=== PATIENT | female | born 1945 | race Caucasian/White ===

== ENCOUNTER 2017-08-11 19:30 | Inpatient (IN) | payer MEDICARE, BC, OTHER ==
[2017-08-11] MEDS ORDERED: morphine 2 MG INJ IV (21:44)
[2017-08-11] MEDS: SOD CHLORIDE 0.9% 1,000 ML IV (22:08)
[2017-08-11 22:22] LABS: ADD MAN DIFF? NO
[2017-08-11 22:25] LABS: BASOPHILS % 0.5 % (0.0-2.0); EOSINOPHILS # 0.1 10^3/ul (0.0-0.5); EOSINOPHILS % 0.8 % (0.0-7.0); HEMATOCRIT 27.4 % (37.0-47.0); HEMOGLOBIN 9.3 g/dl (12.0-16.0); LYMPHOCYTES # 0.7 10^3/ul (0.8-2.9); LYMPHOCYTES % 11.8 % (15.0-51.0); MEAN CORPUSCULAR HGB CONC 33.9 g/dl (32.0-37.0); MEAN CORPUSCULAR VOLUME 79.7 fl (82.0-101.0); MEAN PLATELET VOLUME 8.2 fl (7.4-10.4); MONOCYTE # 0.5 10^3/ul (0.3-0.9); MONOCYTES % 8.3 % (0.0-11.0); NEUTROPHIL # 4.9 10^3/ul (1.6-7.5); PLATELET COUNT 235 10^3/UL (140-415); RED BLOOD COUNT 3.44 10^6/ul (4.20-5.40); RED CELL DISTRIBUTION WIDTH 18.7 % (11.5-14.5)
[2017-08-11 22:25] LABS: WHITE BLOOD COUNT 6.3 10^3/ul (4.8-10.8)
[2017-08-11] MEDS: ONDANSETRON 4 MG INJ IV (22:25)
[2017-08-11 23:06] LABS: ALANINE AMINOTRANSFERASE 19 IU/L (13-69); ALBUMIN/GLOBULIN RATIO 1.25; ALKALINE PHOSPHATASE 76 IU/L (42-121); ANION GAP 24 (8-16); ASPARTATE AMINO TRANSFERASE 18 IU/L (15-46); BLOOD UREA NITROGEN 80 mg/dl (7-20); CALCIUM 8.9 mg/dl (8.4-10.2); CARBON DIOXIDE 11 mmol/L (21-31); CHLORIDE 116 mmol/L (97-110); CREATININE 8.17 mg/dl (0.44-1.00); GLUCOSE 112 mg/dl (70-220); LIPASE 1290 U/L (23-300); POTASSIUM 3.9 mmol/L (3.5-5.1); SODIUM 147 mmol/L (135-144); TOTAL PROTEIN 7.2 g/dl (6.1-8.1)
[2017-08-11 23:13] LABS: ADD UMIC YES; UR ASCORBIC ACID NEGATIVE (NEGATIVE); UR BACTERIA FEW /HPF (NONE SEEN); UR BILIRUBIN (Dip) NEGATIVE (NEGATIVE); UR BLOOD (Dip) 1+ mg/dL (NEGATIVE); UR CLARITY SLIGHTLY CLOUDY (CLEAR); UR COLOR YELLOW (YELLOW); UR GLUCOSE (Dip) NEGATIVE (NEGATIVE); UR KETONES (Dip) NEGATIVE (NEGATIVE); UR LEUKOCYTE ESTERASE (Dip) 2+ Leu/ul (NEGATIVE); UR MUCUS FEW /HPF (NONE SEEN); UR NITRITE (Dip) NEGATIVE (NEGATIVE); UR RBC 3 /HPF (0-5); UR SPECIFIC GRAVITY (Dip) 1.009 (1.003-1.030); UR TOTAL PROTEIN (Dip) 1+ mg/dl (NEGATIVE); UR UROBILINOGEN (Dip) NEGATIVE (NEGATIVE); UR WBC 16 /HPF (0-5)
[2017-08-11 23:17] LABS: TROPONIN-I 0.076 ng/ml (0.00-0.12)
[2017-08-12] MEDS ORDERED: METOPROLOL 25 MG TAB PO
[2017-08-12] MEDS: ONDANSETRON 4 MG INJ IV ×4 (01:14→22:37)
[2017-08-12] MEDS: AMLODIPINE 5 MG TAB PO (01:15)
[2017-08-12 01:50] LABS: IRON 92 ug/dl (35-150)
[2017-08-12 01:53] LABS: MAGNESIUM 1.9 mg/dl (1.7-2.5)
[2017-08-12 01:53] LABS: LACTIC ACID 0.8 mmol/L (0.5-2.0)
[2017-08-12 01:59] LABS: % IRON SATURATION 44 % SAT (22-52); TOTAL IRON BINDING CAPACITY 208 ug/dl (241-421)
[2017-08-12] MEDS ORDERED: VITAMIN A & D 5 GM OINT PACKET TOP (05:18)
[2017-08-12] MEDS: PANTOPRAZOLE 40 MG INJ IV (05:21)
[2017-08-12 06:24] LABS: ADD MAN DIFF? NO
[2017-08-12 06:27] LABS: BASOPHILS % 0.4 % (0.0-2.0); EOSINOPHILS % 0.8 % (0.0-7.0); HEMATOCRIT 23.6 % (37.0-47.0); HEMOGLOBIN 7.9 g/dl (12.0-16.0); LYMPHOCYTES # 0.8 10^3/ul (0.8-2.9); LYMPHOCYTES % 15.5 % (15.0-51.0); MEAN CORPUSCULAR HEMOGLOBIN 27.1 pg (29.0-33.0); MEAN CORPUSCULAR HGB CONC 33.5 g/dl (32.0-37.0); MEAN CORPUSCULAR VOLUME 80.8 fl (82.0-101.0); MEAN PLATELET VOLUME 8.3 fl (7.4-10.4); MONOCYTE # 0.5 10^3/ul (0.3-0.9); MONOCYTES % 10.3 % (0.0-11.0); NEUTROPHIL # 3.6 10^3/ul (1.6-7.5); PLATELET COUNT 207 10^3/UL (140-415); RED BLOOD COUNT 2.92 10^6/ul (4.20-5.40); RED CELL DISTRIBUTION WIDTH 18.7 % (11.5-14.5)
[2017-08-12 07:01] LABS: ALANINE AMINOTRANSFERASE 13 IU/L (13-69); ALBUMIN 3.4 g/dl (3.3-4.9); ALBUMIN/GLOBULIN RATIO 1.13; ALKALINE PHOSPHATASE 64 IU/L (42-121); ANION GAP 24 (8-16); ASPARTATE AMINO TRANSFERASE 14 IU/L (15-46); BLOOD UREA NITROGEN 77 mg/dl (7-20); CALCIUM 8.2 mg/dl (8.4-10.2); CHLORIDE 121 mmol/L (97-110); CREATININE 7.87 mg/dl (0.44-1.00); GLUCOSE 85 mg/dl (70-220); LIPASE 617 U/L (23-300); POTASSIUM 3.9 mmol/L (3.5-5.1); SODIUM 150 mmol/L (135-144); TOTAL PROTEIN 6.4 g/dl (6.1-8.1)
[2017-08-12 07:09] LABS: CARBON DIOXIDE 9 mmol/L (21-31)
[2017-08-12 07:20] LABS: CARCINOEMBRYONIC ANTIGEN 0.8 ng/ml (0.0-5.0)
[2017-08-12] MEDS: LEVOFLOXACIN 500MG/D5W (PMX) 100 ML IVPB (10:27)
[2017-08-12] MEDS: CLONIDINE 0.1 MG/24 HR PATCH TRANSDERM (10:28)
[2017-08-12] MEDS: NA BICARBONATE 8.4% 50 ML SYG IVPB ×2 (10:36→11:45)
[2017-08-12] MEDS ORDERED: NA BICARBONATE 8.4% 50 ML SYG IV (11:00)
[2017-08-12 11:09] LABS: ADD MAN DIFF? NO
[2017-08-12 11:30] LABS: AADO2 Arterial 32.7 mmHg (7.0-24.0); Allen Test ACCEPTAB; Arterial Base Excess -17.2 mmol/L (-3.0-3); Arterial Blood Gas Oxygen Sat 95.1 mmHG (95.0-100.0); Arterial COHb 0.3 % (0.0-3.0); Arterial Fraction of Oxyhgb 94.3 % (93.0-99.0); Arterial HCO3 9.7 mmol/L (22.0-26.0); Arterial MetHb 0.5 % (0.0-1.5); Arterial Total Hemglobin 8.8 g/dl (12.0-18.0); Arterial pCO2 26.8 mmhg (35-45); MODE ROOM AIR; Site Right Radial
[2017-08-12 11:48] LABS: INR 1.25; PROTIME 15.9 Sec (11.9-14.9); PT RATIO 1.2
[2017-08-12 12:22] LABS: WHITE BLOOD COUNT 5.3 10^3/ul (4.8-10.8)
[2017-08-12 12:22] LABS: BASOPHILS % 0.6 % (0.0-2.0); EOSINOPHILS # 0.1 10^3/ul (0.0-0.5); EOSINOPHILS % 1.3 % (0.0-7.0); HEMATOCRIT 23.2 % (37.0-47.0); HEMOGLOBIN 7.9 g/dl (12.0-16.0); LYMPHOCYTES # 0.7 10^3/ul (0.8-2.9); LYMPHOCYTES % 12.5 % (15.0-51.0); MEAN CORPUSCULAR HEMOGLOBIN 27.4 pg (29.0-33.0); MEAN CORPUSCULAR HGB CONC 34.1 g/dl (32.0-37.0); MEAN CORPUSCULAR VOLUME 80.6 fl (82.0-101.0); MEAN PLATELET VOLUME 7.8 fl (7.4-10.4); MONOCYTE # 0.5 10^3/ul (0.3-0.9); MONOCYTES % 9.1 % (0.0-11.0); NEUTROPHILS % 75.4 % (39.0-77.0); PLATELET COUNT 180 10^3/UL (140-415); RED BLOOD COUNT 2.88 10^6/ul (4.20-5.40); RED CELL DISTRIBUTION WIDTH 18.7 % (11.5-14.5)
[2017-08-12] MEDS: SODIUM BICARBONATE (IV ADD) 100 MEQ in DEXTROSE 5% 900 ML IV ×2 (12:22→15:33)
[2017-08-12 12:23] LABS: RETICULOCYTE COUNT % 2.1 % (0.5-1.5)
[2017-08-12] MEDS: NA BICARBONATE 8.4% 50 ML SYG IV (12:24)
[2017-08-12 13:01] LABS: FOLATE 12.9 ng/ml (2.8-20.0)
[2017-08-12 14:16] LABS: CARCINOEMBRYONIC ANTIGEN 0.7 ng/ml (0.0-5.0)
[2017-08-12 14:20] LABS: CANCER ANTIGEN 19-9 19.4 U/ml (0.0-37.0)
[2017-08-12 15:30] LABS: SODIUM,URINE RANDOM 101 mmol/L (30-90)
[2017-08-12 15:34] LABS: PROTEIN/CREAT RATIO 2.64 RATIO
[2017-08-12 16:46] LABS: ANION GAP 21 (8-16); BLOOD UREA NITROGEN 78 mg/dl (7-20); CALCIUM 8.2 mg/dl (8.4-10.2); CARBON DIOXIDE 18 mmol/L (21-31); CHLORIDE 114 mmol/L (97-110); CREATININE 7.77 mg/dl (0.44-1.00); GLUCOSE 165 mg/dl (70-220); POTASSIUM 3.4 mmol/L (3.5-5.1); SODIUM 150 mmol/L (135-144)
[2017-08-12 16:47] LABS: LACTATE DEHYDROGENASE 575 IU/L (313-618)
[2017-08-12] MEDS: POTASSIUM CHLORIDE (SR) 10 MEQ TAB PO ×2 (17:39→23:46)
[2017-08-12] MEDS: EPOETIN 10000 UNITS/1 ML INJ (ESRD) SC (18:10)
[2017-08-12] MEDS: SODIUM BICARBONATE IV (19:40)
[2017-08-12] MEDS: DEXTROSE 5% IV (19:40)
[2017-08-13] MEDS: ONDANSETRON 4 MG INJ IV ×3 (04:18→14:42)
[2017-08-13] MEDS: PANTOPRAZOLE 40 MG INJ IV (05:02)
[2017-08-13] MEDS: SALINE 0.65% 45 ML NAS SPRAY NASAL (05:05)
[2017-08-13] MEDS: morphine 2 MG INJ IV (06:31)
[2017-08-13 07:35] LABS: INR 1.16; PT RATIO 1.2
[2017-08-13 07:36] LABS: PARTIAL THROMBOPLASTIN TIME 27.8 Sec (25.0-35.0)
[2017-08-13 07:48] LABS: ANION GAP 21 (8-16); BLOOD UREA NITROGEN 73 mg/dl (7-20); CARBON DIOXIDE 21 mmol/L (21-31); CHLORIDE 112 mmol/L (97-110); CREATININE 7.21 mg/dl (0.44-1.00); GLUCOSE 114 mg/dl (70-220); MAGNESIUM 1.6 mg/dl (1.7-2.5); PHOSPHORUS 5.6 mg/dl (2.5-4.9); POTASSIUM 3.9 mmol/L (3.5-5.1); SODIUM 150 mmol/L (135-144)
[2017-08-13] MEDS: DEXTROSE 5% IV ×4 (08:18→21:10)
[2017-08-13] MEDS: SODIUM BICARBONATE IV ×4 (08:18→21:10)
[2017-08-13] MEDS: clonAZEPAM 0.5 MG TAB PO (08:50)
[2017-08-13] MEDS: LEVOFLOXACIN 500MG/D5W (PMX) 100 ML IVPB (08:50)
[2017-08-13] MEDS ORDERED: LIDOCAINE 2% (SDV) 5 ML INJ (12:16)
[2017-08-13] MEDS ORDERED: PROPOFOL 20 ML (12:16)
[2017-08-13] MEDS: DEXTROSE 5%-0.225% NACL 1,000 ML IV ×2 (13:00→21:55)
[2017-08-13] MEDS: MAGNESIUM SULFATE 2 GM/50 ML 50 ML IVPB (14:43)
[2017-08-13] MEDS: METOCLOPRAMIDE 5 MG TAB PO ×2 (14:43→21:56)
[2017-08-13] MEDS: POTASSIUM CHLORIDE (SR) 10 MEQ TAB PO (14:43)
[2017-08-13 15:32] LABS: ADD MAN DIFF? NO
[2017-08-13 15:35] LABS: BASOPHILS % 0.3 % (0.0-2.0); EOSINOPHILS # 0.1 10^3/ul (0.0-0.5); EOSINOPHILS % 1.7 % (0.0-7.0); HEMATOCRIT 23.9 % (37.0-47.0); HEMOGLOBIN 8.2 g/dl (12.0-16.0); LYMPHOCYTES # 0.8 10^3/ul (0.8-2.9); LYMPHOCYTES % 10.7 % (15.0-51.0); MEAN CORPUSCULAR HEMOGLOBIN 27.6 pg (29.0-33.0); MEAN CORPUSCULAR HGB CONC 34.3 g/dl (32.0-37.0); MEAN CORPUSCULAR VOLUME 80.5 fl (82.0-101.0); MEAN PLATELET VOLUME 8.4 fl (7.4-10.4); MONOCYTE # 0.6 10^3/ul (0.3-0.9); MONOCYTES % 8.3 % (0.0-11.0); NEUTROPHIL # 5.5 10^3/ul (1.6-7.5); NEUTROPHILS % 78.6 % (39.0-77.0); PLATELET COUNT 228 10^3/UL (140-415); RED BLOOD COUNT 2.97 10^6/ul (4.20-5.40); RED CELL DISTRIBUTION WIDTH 18.6 % (11.5-14.5)
[2017-08-13 16:05] LABS: ALBUMIN 3.8 g/dL (3.8-4.8); ALPHA-1-GLOBULINS 0.6 g/dL (0.2-0.3); ALPHA-2-GLOBULINS 0.9 g/dL (0.5-0.9); BETA 2 GLOBULINS 0.3 g/dL (0.2-0.5); BETA GLOBULINS 0.4 g/dL (0.4-0.6); GAMMA GLOBULINS 1.1 g/dL (0.8-1.7)
[2017-08-13] MEDS: SUCRALFATE 1 GM TAB PO (18:43)
[2017-08-14] MEDS: CLONIDINE 0.1 MG/24 HR PATCH TRANSDERM (01:35)
[2017-08-14] MEDS: DEXTROSE 5% IV (03:50)
[2017-08-14] MEDS: SODIUM BICARBONATE IV (03:50)
[2017-08-14] MEDS: ONDANSETRON 4 MG INJ IV ×3 (04:14→17:45)
[2017-08-14] MEDS: PANTOPRAZOLE 40 MG INJ IV ×2 (05:17→17:44)
[2017-08-14] MEDS: DEXTROSE 5%-0.225% NACL 1,000 ML IV (05:17)
[2017-08-14 06:14] LABS: ADD MAN DIFF? NO
[2017-08-14 06:21] LABS: WHITE BLOOD COUNT 8.7 10^3/ul (4.8-10.8)
[2017-08-14 06:21] LABS: BASOPHILS % 0.3 % (0.0-2.0); EOSINOPHILS # 0.1 10^3/ul (0.0-0.5); EOSINOPHILS % 0.9 % (0.0-7.0); HEMOGLOBIN 8.2 g/dl (12.0-16.0); LYMPHOCYTES # 0.6 10^3/ul (0.8-2.9); LYMPHOCYTES % 7.2 % (15.0-51.0); MEAN CORPUSCULAR HEMOGLOBIN 27.3 pg (29.0-33.0); MEAN CORPUSCULAR HGB CONC 34.2 g/dl (32.0-37.0); MEAN PLATELET VOLUME 8.2 fl (7.4-10.4); MONOCYTE # 0.6 10^3/ul (0.3-0.9); MONOCYTES % 6.7 % (0.0-11.0); NEUTROPHIL # 7.3 10^3/ul (1.6-7.5); NEUTROPHILS % 84.6 % (39.0-77.0); PLATELET COUNT 193 10^3/UL (140-415); RED CELL DISTRIBUTION WIDTH 18.2 % (11.5-14.5)
[2017-08-14 06:50] LABS: ANION GAP 18 (8-16); BLOOD UREA NITROGEN 66 mg/dl (7-20); CALCIUM 7.6 mg/dl (8.4-10.2); CARBON DIOXIDE 23 mmol/L (21-31); CHLORIDE 103 mmol/L (97-110); CREATININE 6.41 mg/dl (0.44-1.00); GLUCOSE 191 mg/dl (70-220); MAGNESIUM 2.2 mg/dl (1.7-2.5); PHOSPHORUS 4.7 mg/dl (2.5-4.9); SODIUM 140 mmol/L (135-144)
[2017-08-14] MEDS: SUCRALFATE 1 GM TAB PO ×2 (08:39→17:28)
[2017-08-14] MEDS: METOCLOPRAMIDE 5 MG TAB PO ×2 (08:40→13:00)
[2017-08-14] MEDS: SOD CHLORIDE 0.45% 1,000 ML IV ×2 (08:40→18:36)
[2017-08-14] MEDS: morphine 2 MG INJ IV (15:14)
[2017-08-14] MEDS: EPOETIN 10000 UNITS/1 ML INJ (ESRD) SC (16:54)
[2017-08-14 19:45] LABS: OCCULT BLOOD STOOL NEGATIVE (NEGATIVE)
[2017-08-14] MEDS: METOCLOPRAMIDE 10 MG INJ IV (20:25)
[2017-08-15] MEDS: SOD CHLORIDE 0.45% 1,000 ML IV ×2 (06:28→16:18)
[2017-08-15] MEDS: PANTOPRAZOLE 40 MG INJ IV ×2 (06:28→17:18)
[2017-08-15 06:49] LABS: ADD MAN DIFF? NO
[2017-08-15 06:53] LABS: WHITE BLOOD COUNT 6.4 10^3/ul (4.8-10.8)
[2017-08-15 06:53] LABS: BASOPHILS % 0.3 % (0.0-2.0); EOSINOPHILS # 0.1 10^3/ul (0.0-0.5); EOSINOPHILS % 1.3 % (0.0-7.0); HEMATOCRIT 22.4 % (37.0-47.0); HEMOGLOBIN 7.6 g/dl (12.0-16.0); LYMPHOCYTES # 0.6 10^3/ul (0.8-2.9); LYMPHOCYTES % 9.8 % (15.0-51.0); MEAN CORPUSCULAR HEMOGLOBIN 27.1 pg (29.0-33.0); MEAN CORPUSCULAR HGB CONC 33.9 g/dl (32.0-37.0); MEAN PLATELET VOLUME 8.6 fl (7.4-10.4); MONOCYTE # 0.7 10^3/ul (0.3-0.9); MONOCYTES % 10.4 % (0.0-11.0); NEUTROPHILS % 77.9 % (39.0-77.0); PLATELET COUNT 157 10^3/UL (140-415); RED CELL DISTRIBUTION WIDTH 17.8 % (11.5-14.5)
[2017-08-15 06:55] LABS: ANION GAP 17 (8-16); BLOOD UREA NITROGEN 54 mg/dl (7-20); CALCIUM 7.6 mg/dl (8.4-10.2); CARBON DIOXIDE 22 mmol/L (21-31); CHLORIDE 105 mmol/L (97-110); CREATININE 6.46 mg/dl (0.44-1.00); GLUCOSE 104 mg/dl (70-220); MAGNESIUM 1.8 mg/dl (1.7-2.5); PHOSPHORUS 4.4 mg/dl (2.5-4.9); POTASSIUM 3.7 mmol/L (3.5-5.1); SODIUM 140 mmol/L (135-144)
[2017-08-15] MEDS: SUCRALFATE 1 GM TAB PO ×2 (08:35→17:18)
[2017-08-15] MEDS: METOCLOPRAMIDE 10 MG INJ IV ×3 (08:36→20:31)
[2017-08-15 12:16] LABS: ALBUMIN 3.2 g/dL (3.8-4.8); ALPHA-1-GLOBULINS 0.5 g/dL (0.2-0.3); ALPHA-2-GLOBULINS 0.8 g/dL (0.5-0.9); BETA 2 GLOBULINS 0.3 g/dL (0.2-0.5); BETA GLOBULINS 0.3 g/dL (0.4-0.6); GAMMA GLOBULINS 0.9 g/dL (0.8-1.7)
[2017-08-16] MEDS: SOD CHLORIDE 0.45% 1,000 ML IV ×5 (02:39→20:30)
[2017-08-16] MEDS: PANTOPRAZOLE 40 MG INJ IV ×2 (05:19→17:59)
[2017-08-16 06:32] LABS: ADD MAN DIFF? NO
[2017-08-16 06:43] LABS: ABNORMAL IP MESSAGE 1; BASOPHILS % 0.3 % (0.0-2.0); EOSINOPHILS # 0.1 10^3/ul (0.0-0.5); EOSINOPHILS % 1.4 % (0.0-7.0); HEMATOCRIT 21.7 % (37.0-47.0); HEMOGLOBIN 7.4 g/dl (12.0-16.0); LYMPHOCYTES # 0.6 10^3/ul (0.8-2.9); LYMPHOCYTES % 8.7 % (15.0-51.0); MEAN CORPUSCULAR HEMOGLOBIN 27.5 pg (29.0-33.0); MEAN CORPUSCULAR HGB CONC 34.1 g/dl (32.0-37.0); MEAN CORPUSCULAR VOLUME 80.7 fl (82.0-101.0); MEAN PLATELET VOLUME 8.4 fl (7.4-10.4); MONOCYTE # 0.6 10^3/ul (0.3-0.9); MONOCYTES % 9.2 % (0.0-11.0); NEUTROPHIL # 5.3 10^3/ul (1.6-7.5); NEUTROPHILS % 79.6 % (39.0-77.0); PLATELET COUNT 139 10^3/UL (140-415); RED BLOOD COUNT 2.69 10^6/ul (4.20-5.40); RED CELL DISTRIBUTION WIDTH 17.7 % (11.5-14.5)
[2017-08-16 06:43] LABS: WHITE BLOOD COUNT 6.6 10^3/ul (4.8-10.8)
[2017-08-16 07:02] LABS: ANION GAP 17 (8-16); BLOOD UREA NITROGEN 49 mg/dl (7-20); CALCIUM 7.7 mg/dl (8.4-10.2); CARBON DIOXIDE 20 mmol/L (21-31); CHLORIDE 105 mmol/L (97-110); CREATININE 6.19 mg/dl (0.44-1.00); GLUCOSE 96 mg/dl (70-220); MAGNESIUM 1.6 mg/dl (1.7-2.5); POTASSIUM 3.5 mmol/L (3.5-5.1); SODIUM 138 mmol/L (135-144)
[2017-08-16 07:21] LABS: POSITIVE DIFF @See below
[2017-08-16] MEDS: METOCLOPRAMIDE 10 MG INJ IV ×3 (09:43→22:31)
[2017-08-16] MEDS: SUCRALFATE 1 GM TAB PO ×2 (09:43→17:59)
[2017-08-16] MEDS: MAGNESIUM SULFATE 3 GM in DEXTROSE 5% 100 ML IVPB (12:13)
[2017-08-16] MEDS: POTASSIUM CHLORIDE (SR) 10 MEQ TAB PO (12:14)
[2017-08-17 02:57] LABS: IMMEDIATE SPIN CROSSMATCH 1 2
[2017-08-17] MEDS: ACETAMINOPHEN 650 MG SUPP PR (03:10)
[2017-08-17] MEDS: PANTOPRAZOLE 40 MG INJ IV ×2 (06:03→18:35)
[2017-08-17] MEDS: SOD CHLORIDE 0.45% 1,000 ML IV (06:26)
[2017-08-17] MEDS: SUCRALFATE 1 GM TAB PO ×2 (08:23→18:35)
[2017-08-17] MEDS: METOCLOPRAMIDE 10 MG INJ IV ×3 (08:23→21:24)
[2017-08-17 11:45] LABS: ADD MAN DIFF? NO
[2017-08-17 11:48] LABS: WHITE BLOOD COUNT 10.7 10^3/ul (4.8-10.8)
[2017-08-17 11:48] LABS: BASOPHILS % 0.4 % (0.0-2.0); EOSINOPHILS # 0.1 10^3/ul (0.0-0.5); EOSINOPHILS % 0.6 % (0.0-7.0); HEMATOCRIT 30.7 % (37.0-47.0); HEMOGLOBIN 10.7 g/dl (12.0-16.0); LYMPHOCYTES # 0.8 10^3/ul (0.8-2.9); MEAN CORPUSCULAR HEMOGLOBIN 29.1 pg (29.0-33.0); MEAN CORPUSCULAR HGB CONC 34.9 g/dl (32.0-37.0); MEAN CORPUSCULAR VOLUME 83.4 fl (82.0-101.0); MEAN PLATELET VOLUME 8.2 fl (7.4-10.4); MONOCYTES % 8.9 % (0.0-11.0); NEUTROPHIL # 8.8 10^3/ul (1.6-7.5); NEUTROPHILS % 82.1 % (39.0-77.0); PLATELET COUNT 165 10^3/UL (140-415); RED BLOOD COUNT 3.68 10^6/ul (4.20-5.40); RED CELL DISTRIBUTION WIDTH 17.3 % (11.5-14.5)
[2017-08-17 12:41] LABS: ANION GAP 18 (8-16); BLOOD UREA NITROGEN 43 mg/dl (7-20); CALCIUM 8.1 mg/dl (8.4-10.2); CARBON DIOXIDE 16 mmol/L (21-31); CHLORIDE 106 mmol/L (97-110); CREATININE 5.65 mg/dl (0.44-1.00); GLUCOSE 123 mg/dl (70-220); MAGNESIUM 2.2 mg/dl (1.7-2.5); POTASSIUM 3.8 mmol/L (3.5-5.1); SODIUM 136 mmol/L (135-144)
[2017-08-17 14:12] LABS: CREATININE, RANDOM URINE 44 mg/dL (20-320); PROTEIN/CREATININE RATIO 2682 mg/g creat (21-161)
[2017-08-17] MEDS: EPOETIN 10000 UNITS/1 ML INJ (ESRD) SC (18:36)
[2017-08-18] MEDS: PANTOPRAZOLE 40 MG INJ IV ×2 (05:34→18:07)
[2017-08-18 06:05] LABS: ADD MAN DIFF? NO
[2017-08-18 06:09] LABS: BASOPHILS % 0.5 % (0.0-2.0); EOSINOPHILS # 0.1 10^3/ul (0.0-0.5); EOSINOPHILS % 1.9 % (0.0-7.0); HEMATOCRIT 28.1 % (37.0-47.0); HEMOGLOBIN 9.6 g/dl (12.0-16.0); LYMPHOCYTES # 0.9 10^3/ul (0.8-2.9); LYMPHOCYTES % 12.6 % (15.0-51.0); MEAN CORPUSCULAR HEMOGLOBIN 28.2 pg (29.0-33.0); MEAN CORPUSCULAR HGB CONC 34.2 g/dl (32.0-37.0); MEAN CORPUSCULAR VOLUME 82.4 fl (82.0-101.0); MEAN PLATELET VOLUME 8.3 fl (7.4-10.4); MONOCYTES % 13.5 % (0.0-11.0); NEUTROPHIL # 5.2 10^3/ul (1.6-7.5); NEUTROPHILS % 70.3 % (39.0-77.0); PLATELET COUNT 159 10^3/UL (140-415); RED BLOOD COUNT 3.41 10^6/ul (4.20-5.40); RED CELL DISTRIBUTION WIDTH 17.9 % (11.5-14.5)
[2017-08-18 06:09] LABS: WHITE BLOOD COUNT 7.4 10^3/ul (4.8-10.8)
[2017-08-18 06:46] LABS: ANION GAP 13 (8-16); BLOOD UREA NITROGEN 46 mg/dl (7-20); CALCIUM 8.4 mg/dl (8.4-10.2); CARBON DIOXIDE 18 mmol/L (21-31); CHLORIDE 113 mmol/L (97-110); GLUCOSE 95 mg/dl (70-220); MAGNESIUM 2.3 mg/dl (1.7-2.5); PHOSPHORUS 3.7 mg/dl (2.5-4.9); POTASSIUM 3.9 mmol/L (3.5-5.1); SODIUM 140 mmol/L (135-144)
[2017-08-18] MEDS: SUCRALFATE 1 GM TAB PO ×2 (08:05→08:48)
[2017-08-18] MEDS: POTASSIUM CHLORIDE (SR) 10 MEQ TAB PO (08:37)
[2017-08-18] MEDS: METOCLOPRAMIDE 10 MG INJ IV ×3 (08:46→20:39)
[2017-08-18] MEDS: FUROSEMIDE 40 MG INJ IV (08:47)
[2017-08-18] MEDS: SOD CHLORIDE 0.9% 500 ML (11:00)
[2017-08-18] MEDS: LIDOCAINE 1% (MDV) 10 ML INJ (11:25)
[2017-08-18] MEDS: morphine 2 MG INJ IV ×2 (19:18→22:11)
[2017-08-18] MEDS: ONDANSETRON 4 MG INJ IV (19:29)
[2017-08-19] MEDS: PANTOPRAZOLE 40 MG INJ IV ×2 (06:06→17:58)
[2017-08-19] MEDS: SUCRALFATE 1 GM TAB PO ×2 (08:37→17:58)
[2017-08-19] MEDS: METOCLOPRAMIDE 10 MG INJ IV ×3 (08:38→21:30)
[2017-08-19] MEDS: AMLODIPINE 5 MG TAB PO (10:57)
[2017-08-19] MEDS: CLONIDINE 0.1 MG/24 HR PATCH TRANSDERM (10:57)
[2017-08-19 11:33] LABS: ADD MAN DIFF? NO
[2017-08-19 11:45] LABS: BASOPHILS % 0.4 % (0.0-2.0); EOSINOPHILS # 0.1 10^3/ul (0.0-0.5); EOSINOPHILS % 0.8 % (0.0-7.0); HEMATOCRIT 29.2 % (37.0-47.0); LYMPHOCYTES # 0.7 10^3/ul (0.8-2.9); LYMPHOCYTES % 8.5 % (15.0-51.0); MEAN CORPUSCULAR HEMOGLOBIN 28.7 pg (29.0-33.0); MEAN CORPUSCULAR HGB CONC 34.2 g/dl (32.0-37.0); MEAN CORPUSCULAR VOLUME 83.9 fl (82.0-101.0); MONOCYTE # 1.3 10^3/ul (0.3-0.9); MONOCYTES % 16.1 % (0.0-11.0); NEUTROPHIL # 5.7 10^3/ul (1.6-7.5); NEUTROPHILS % 73.2 % (39.0-77.0); PLATELET COUNT 160 10^3/UL (140-415); RED BLOOD COUNT 3.48 10^6/ul (4.20-5.40); RED CELL DISTRIBUTION WIDTH 18.5 % (11.5-14.5)
[2017-08-19 11:45] LABS: WHITE BLOOD COUNT 7.8 10^3/ul (4.8-10.8)
[2017-08-19 12:07] LABS: URIC ACID 8.8 mg/dl (3.1-7.9)
[2017-08-19 12:10] LABS: ANION GAP 18 (8-16); BLOOD UREA NITROGEN 52 mg/dl (7-20); CALCIUM 8.9 mg/dl (8.4-10.2); CARBON DIOXIDE 19 mmol/L (21-31); CHLORIDE 104 mmol/L (97-110); CREATININE 6.66 mg/dl (0.44-1.00); GLUCOSE 164 mg/dl (70-220); PHOSPHORUS 3.5 mg/dl (2.5-4.9); POTASSIUM 3.9 mmol/L (3.5-5.1); SODIUM 137 mmol/L (135-144)
[2017-08-19] MEDS: morphine 2 MG INJ IV (12:49)
[2017-08-19 12:55] LABS: IMMUNOGLOBULIN A 142 mg/dl (70-400); IMMUNOGLOBULIN G 862 mg/dl (700-1600); IMMUNOGLOBULIN M 65 mg/dl (40-230)
[2017-08-19 16:18] LABS: CANCER ANTIGEN 125 8.9 U/ml (0.0-35.0)
[2017-08-19] MEDS: EPOETIN ALFA 1,000 UNITS/0.1 ML VIAL SC (17:58)
[2017-08-20] MEDS: morphine 2 MG INJ IV (00:36)
[2017-08-20] MEDS: PANTOPRAZOLE 40 MG INJ IV ×2 (05:51→18:40)
[2017-08-20 06:28] LABS: ADD MAN DIFF? NO
[2017-08-20 06:44] LABS: BASOPHILS % 0.5 % (0.0-2.0); EOSINOPHILS # 0.1 10^3/ul (0.0-0.5); EOSINOPHILS % 1.2 % (0.0-7.0); HEMATOCRIT 28.3 % (37.0-47.0); HEMOGLOBIN 9.4 g/dl (12.0-16.0); LYMPHOCYTES % 13.6 % (15.0-51.0); MEAN CORPUSCULAR HEMOGLOBIN 27.8 pg (29.0-33.0); MEAN CORPUSCULAR HGB CONC 33.2 g/dl (32.0-37.0); MEAN CORPUSCULAR VOLUME 83.7 fl (82.0-101.0); MEAN PLATELET VOLUME 8.3 fl (7.4-10.4); MONOCYTE # 1.3 10^3/ul (0.3-0.9); MONOCYTES % 16.5 % (0.0-11.0); NEUTROPHILS % 66.7 % (39.0-77.0); PLATELET COUNT 159 10^3/UL (140-415); RED BLOOD COUNT 3.38 10^6/ul (4.20-5.40); RED CELL DISTRIBUTION WIDTH 18.6 % (11.5-14.5)
[2017-08-20 06:44] LABS: WHITE BLOOD COUNT 7.6 10^3/ul (4.8-10.8)
[2017-08-20 06:55] LABS: INR 1.17; PROTIME 15.1 Sec (11.9-14.9); PT RATIO 1.2
[2017-08-20 06:56] LABS: PARTIAL THROMBOPLASTIN TIME 34.1 Sec (25.0-35.0)
[2017-08-20 07:19] LABS: COLLAGEN/EPI 84 Secs. (51-198)
[2017-08-20 07:19] LABS: LIPASE 258 U/L (23-300)
[2017-08-20 07:21] LABS: ANION GAP 17 (8-16); BLOOD UREA NITROGEN 55 mg/dl (7-20); CALCIUM 8.8 mg/dl (8.4-10.2); CARBON DIOXIDE 19 mmol/L (21-31); CHLORIDE 103 mmol/L (97-110); CREATININE 6.78 mg/dl (0.44-1.00); GLUCOSE 122 mg/dl (70-220); MAGNESIUM 1.9 mg/dl (1.7-2.5); PHOSPHORUS 3.8 mg/dl (2.5-4.9); POTASSIUM 4.2 mmol/L (3.5-5.1); SODIUM 135 mmol/L (135-144)
[2017-08-20 07:47] LABS: ERYTHROCYTE SEDIMENTATION RATE 55 mm/Hr (0-30)
[2017-08-20] MEDS: SUCRALFATE 1 GM TAB PO ×2 (08:05→17:49)
[2017-08-20] MEDS: AMLODIPINE 5 MG TAB PO (09:00)
[2017-08-20] MEDS: METOCLOPRAMIDE 10 MG INJ IV ×3 (09:56→20:37)
[2017-08-20] MEDS: DEXTROSE 5%-0.45% NACL 1,000 ML IV (09:58)
[2017-08-20 12:36] LABS: COMPLEMENT C3 82 mg/dl (88-165)
[2017-08-20 12:37] LABS: COMPLEMENT C4 27 mg/dl (14-44)
[2017-08-20] MEDS: PROPOFOL 20 ML (12:59)
[2017-08-20] MEDS: FENTAnyl 50 MCG/ML VIAL (13:00)
[2017-08-20] MEDS: LIDOCAINE 1% (MDV) 10 ML INJ (13:03)
[2017-08-20 19:46] LABS: ADD MAN DIFF? NO
[2017-08-20 19:47] LABS: WHITE BLOOD COUNT 5.7 10^3/ul (4.8-10.8)
[2017-08-20 19:47] LABS: BASOPHILS % 0.5 % (0.0-2.0); EOSINOPHILS # 0.1 10^3/ul (0.0-0.5); EOSINOPHILS % 1.8 % (0.0-7.0); HEMATOCRIT 28.7 % (37.0-47.0); HEMOGLOBIN 9.4 g/dl (12.0-16.0); LYMPHOCYTES # 0.9 10^3/ul (0.8-2.9); LYMPHOCYTES % 16.2 % (15.0-51.0); MEAN CORPUSCULAR HEMOGLOBIN 28.1 pg (29.0-33.0); MEAN CORPUSCULAR HGB CONC 32.8 g/dl (32.0-37.0); MEAN CORPUSCULAR VOLUME 85.9 fl (82.0-101.0); MEAN PLATELET VOLUME 8.1 fl (7.4-10.4); MONOCYTE # 0.7 10^3/ul (0.3-0.9); MONOCYTES % 13.1 % (0.0-11.0); NEUTROPHIL # 3.8 10^3/ul (1.6-7.5); PLATELET COUNT 153 10^3/UL (140-415); RED BLOOD COUNT 3.34 10^6/ul (4.20-5.40); RED CELL DISTRIBUTION WIDTH 18.5 % (11.5-14.5)
[2017-08-21] MEDS: DEXTROSE 5%-0.45% NACL 1,000 ML IV ×2 (01:10→06:33)
[2017-08-21] MEDS: morphine 2 MG INJ IV (04:26)
[2017-08-21] MEDS: PANTOPRAZOLE 40 MG INJ IV ×2 (05:26→17:22)
[2017-08-21] MEDS: SUCRALFATE 1 GM TAB PO ×2 (08:05→17:23)
[2017-08-21] MEDS: METOCLOPRAMIDE 10 MG INJ IV ×3 (08:38→20:24)
[2017-08-21] MEDS: AMLODIPINE 5 MG TAB PO (08:42)
[2017-08-21] MEDS: FUROSEMIDE 40 MG INJ IV (09:14)
[2017-08-21] MEDS ORDERED: LORAZEPAM 2 MG INJ IV (11:30)
[2017-08-21] MEDS: MIDAZOLAM 1 MG/ML 2 ML INJ (11:58)
[2017-08-21] MEDS: PROPOFOL 20 ML (11:59)
[2017-08-21] MEDS: FENTAnyl 50 MCG/ML VIAL (11:59)
[2017-08-21] MEDS: LIDOCAINE 2% (SDV) 5 ML INJ (11:59)
[2017-08-21 13:26] LABS: ANCA SCREEN NEGATIVE (NEGATIVE)
[2017-08-21 13:32] LABS: ADD MAN DIFF? NO
[2017-08-21 13:38] LABS: WHITE BLOOD COUNT 6.8 10^3/ul (4.8-10.8)
[2017-08-21 13:38] LABS: BASOPHILS % 0.4 % (0.0-2.0); EOSINOPHILS # 0.1 10^3/ul (0.0-0.5); EOSINOPHILS % 1.5 % (0.0-7.0); HEMATOCRIT 26.7 % (37.0-47.0); LYMPHOCYTES # 1.2 10^3/ul (0.8-2.9); MEAN CORPUSCULAR HGB CONC 33.7 g/dl (32.0-37.0); MEAN CORPUSCULAR VOLUME 82.9 fl (82.0-101.0); MEAN PLATELET VOLUME 8.3 fl (7.4-10.4); MONOCYTES % 14.2 % (0.0-11.0); NEUTROPHIL # 4.4 10^3/ul (1.6-7.5); NEUTROPHILS % 64.5 % (39.0-77.0); PLATELET COUNT 149 10^3/UL (140-415); RED BLOOD COUNT 3.22 10^6/ul (4.20-5.40); RED CELL DISTRIBUTION WIDTH 18.4 % (11.5-14.5)
[2017-08-21 13:59] LABS: ANION GAP 15 (8-16); BLOOD UREA NITROGEN 59 mg/dl (7-20); CALCIUM 8.8 mg/dl (8.4-10.2); CARBON DIOXIDE 20 mmol/L (21-31); CHLORIDE 108 mmol/L (97-110); CREATININE 6.64 mg/dl (0.44-1.00); GLUCOSE 97 mg/dl (70-220); MAGNESIUM 1.7 mg/dl (1.7-2.5); PHOSPHORUS 4.5 mg/dl (2.5-4.9); POTASSIUM 4.1 mmol/L (3.5-5.1); SODIUM 139 mmol/L (135-144)
[2017-08-21] MEDS ORDERED: ONDANSETRON 4 MG INJ IV (15:30)
[2017-08-21] MEDS ORDERED: FENTAnyl 50 MCG/ML VIAL IV (15:30)
[2017-08-21 15:47] LABS: ANA SCREEN POSITIVE (NEGATIVE); MYELOPEROXIDASE ANTIBODY <1.0 AI; PROTEINASE-3 ANTIBODY <1.0 AI
[2017-08-21] MEDS ORDERED: SOD CHLORIDE 0.9% 500 ML (16:05)
[2017-08-21] MEDS ORDERED: LIDOCAINE 1% (MDV) 20 ML INJ (16:05)
[2017-08-21] MEDS ORDERED: CEFAZOLIN 1 GM/50 ML (PMX) 50 ML IVPB (16:05)
[2017-08-21] MEDS ORDERED: HEPARIN 1000 UNITS/ML 10 ML INJ (16:05)
[2017-08-21] MEDS: EPOETIN ALFA 1,000 UNITS/0.1 ML VIAL SC (17:23)
[2017-08-21] MEDS: ONDANSETRON 4 MG INJ IV (18:02)
[2017-08-21 19:38] LABS: ANA PATTERN HOMOGENEOUS
[2017-08-22] MEDS: PANTOPRAZOLE 40 MG INJ IV ×2 (05:43→17:53)
[2017-08-22 06:19] LABS: ADD MAN DIFF? NO
[2017-08-22 06:34] LABS: BASOPHILS % 0.6 % (0.0-2.0); EOSINOPHILS # 0.1 10^3/ul (0.0-0.5); EOSINOPHILS % 1.8 % (0.0-7.0); HEMATOCRIT 29.5 % (37.0-47.0); HEMOGLOBIN 9.6 g/dl (12.0-16.0); LYMPHOCYTES # 0.9 10^3/ul (0.8-2.9); LYMPHOCYTES % 16.5 % (15.0-51.0); MEAN CORPUSCULAR HEMOGLOBIN 27.7 pg (29.0-33.0); MEAN CORPUSCULAR HGB CONC 32.5 g/dl (32.0-37.0); MEAN CORPUSCULAR VOLUME 85.3 fl (82.0-101.0); MEAN PLATELET VOLUME 8.5 fl (7.4-10.4); MONOCYTE # 0.7 10^3/ul (0.3-0.9); MONOCYTES % 12.7 % (0.0-11.0); NEUTROPHIL # 3.5 10^3/ul (1.6-7.5); NEUTROPHILS % 64.7 % (39.0-77.0); PLATELET COUNT 162 10^3/UL (140-415); RED BLOOD COUNT 3.46 10^6/ul (4.20-5.40); RED CELL DISTRIBUTION WIDTH 18.3 % (11.5-14.5)
[2017-08-22 06:34] LABS: WHITE BLOOD COUNT 5.4 10^3/ul (4.8-10.8)
[2017-08-22 06:44] LABS: INR 1.12; PROTIME 14.6 Sec (11.9-14.9); PT RATIO 1.1
[2017-08-22 06:45] LABS: PARTIAL THROMBOPLASTIN TIME 33.9 Sec (25.0-35.0)
[2017-08-22 06:46] LABS: ANION GAP 17 (8-16); BLOOD UREA NITROGEN 61 mg/dl (7-20); CALCIUM 8.9 mg/dl (8.4-10.2); CARBON DIOXIDE 20 mmol/L (21-31); CHLORIDE 108 mmol/L (97-110); CREATININE 6.73 mg/dl (0.44-1.00); GLUCOSE 113 mg/dl (70-220); MAGNESIUM 1.7 mg/dl (1.7-2.5); PHOSPHORUS 4.9 mg/dl (2.5-4.9); POTASSIUM 4.5 mmol/L (3.5-5.1); SODIUM 140 mmol/L (135-144)
[2017-08-22 07:28] LABS: ALANINE AMINOTRANSFERASE 14 IU/L (13-69); ALBUMIN 3.1 g/dl (3.3-4.9); ALBUMIN/GLOBULIN RATIO 1.14; ALKALINE PHOSPHATASE 98 IU/L (42-121); ANION GAP 17 (8-16); ASPARTATE AMINO TRANSFERASE 11 IU/L (15-46); BILIRUBIN,INDIRECT 0.1 mg/dl (0-1.1); BILIRUBIN,TOTAL 0.1 mg/dl (0.2-1.3); BLOOD UREA NITROGEN 60 mg/dl (7-20); CALCIUM 8.8 mg/dl (8.4-10.2); CARBON DIOXIDE 20 mmol/L (21-31); CHLORIDE 105 mmol/L (97-110); CREATININE 6.48 mg/dl (0.44-1.00); GLUCOSE 107 mg/dl (70-220); POTASSIUM 4.4 mmol/L (3.5-5.1); SODIUM 138 mmol/L (135-144); TOTAL PROTEIN 5.8 g/dl (6.1-8.1)
[2017-08-22] MEDS: SUCRALFATE 1 GM TAB PO ×2 (08:00→17:53)
[2017-08-22] MEDS: METOCLOPRAMIDE 10 MG INJ IV ×3 (09:03→21:07)
[2017-08-22] MEDS: SPECIAL NON-STANDARD MEDICATION HE ×2 (11:00→13:14)
[2017-08-22] MEDS: ALBUMIN HUMAN 5% 500ML INJ CATHETER (11:00)
[2017-08-22 12:54] LABS: IMMEDIATE SPIN CROSSMATCH 1 1
[2017-08-22] MEDS: CALCIUM GLUCONATE 10% 2 GM in DEXTROSE 5% 100 ML IVPB (13:16)
[2017-08-22 14:18] LABS: HEPATITIS B SURFACE ANTIGEN NEGATIVE (NEGATIVE)
[2017-08-22 14:36] LABS: HEPATITIS B SURFACE ANTIBODY NEGATIVE (NEGATIVE)
[2017-08-22] MEDS: CA GLUCONATE (50 MG/ML) IV SYG IV* (15:13)
[2017-08-23] MEDS: morphine 2 MG INJ IV (01:27)
[2017-08-23] MEDS: PANTOPRAZOLE 40 MG INJ IV ×2 (06:03→17:22)
[2017-08-23 06:25] LABS: ADD MAN DIFF? NO
[2017-08-23 06:34] LABS: BASOPHILS % 0.4 % (0.0-2.0); EOSINOPHILS # 0.1 10^3/ul (0.0-0.5); EOSINOPHILS % 1.6 % (0.0-7.0); HEMATOCRIT 29.2 % (37.0-47.0); HEMOGLOBIN 9.7 g/dl (12.0-16.0); LYMPHOCYTES # 0.9 10^3/ul (0.8-2.9); LYMPHOCYTES % 16.8 % (15.0-51.0); MEAN CORPUSCULAR HEMOGLOBIN 27.4 pg (29.0-33.0); MEAN CORPUSCULAR HGB CONC 33.2 g/dl (32.0-37.0); MEAN CORPUSCULAR VOLUME 82.5 fl (82.0-101.0); MEAN PLATELET VOLUME 8.6 fl (7.4-10.4); MONOCYTE # 0.7 10^3/ul (0.3-0.9); MONOCYTES % 13.5 % (0.0-11.0); NEUTROPHIL # 3.5 10^3/ul (1.6-7.5); NEUTROPHILS % 63.1 % (39.0-77.0); NUCLEATED RED BLOOD CELLS% 0.5 /100WBC (0.0-0.0); PLATELET COUNT 138 10^3/UL (140-415); RED BLOOD COUNT 3.54 10^6/ul (4.20-5.40); RED CELL DISTRIBUTION WIDTH 18.1 % (11.5-14.5)
[2017-08-23 06:34] LABS: WHITE BLOOD COUNT 5.5 10^3/ul (4.8-10.8)
[2017-08-23 07:00] LABS: ALANINE AMINOTRANSFERASE 14 IU/L (13-69); ALBUMIN 3.1 g/dl (3.3-4.9); ALBUMIN/GLOBULIN RATIO 1.34; ALKALINE PHOSPHATASE 55 IU/L (42-121); ANION GAP 13 (8-16); ASPARTATE AMINO TRANSFERASE 12 IU/L (15-46); BILIRUBIN,INDIRECT 0.4 mg/dl (0-1.1); BILIRUBIN,TOTAL 0.4 mg/dl (0.2-1.3); BLOOD UREA NITROGEN 18 mg/dl (7-20); CALCIUM 9.2 mg/dl (8.4-10.2); CARBON DIOXIDE 31 mmol/L (21-31); CHLORIDE 103 mmol/L (97-110); CREATININE 2.82 mg/dl (0.44-1.00); GLUCOSE 96 mg/dl (70-220); SODIUM 143 mmol/L (135-144); TOTAL PROTEIN 5.4 g/dl (6.1-8.1)
[2017-08-23 07:09] LABS: INR 1.11; PROTIME 14.5 Sec (11.9-14.9); PT RATIO 1.1
[2017-08-23 07:10] LABS: PARTIAL THROMBOPLASTIN TIME 31.1 Sec (25.0-35.0)
[2017-08-23] MEDS: METOCLOPRAMIDE 10 MG INJ IV ×3 (08:03→20:30)
[2017-08-23] MEDS: SUCRALFATE 1 GM TAB PO ×2 (08:03→17:22)
[2017-08-23] MEDS: ALBUMIN HUMAN 5% 500ML INJ CATHETER (11:20)
[2017-08-23] MEDS: SPECIAL NON-STANDARD MEDICATION HE (11:32)
[2017-08-23] MEDS: CALCIUM GLUCONATE 10% 2 GM in DEXTROSE 5% 100 ML IVPB (11:34)
[2017-08-24] MEDS: PANTOPRAZOLE 40 MG INJ IV ×2 (05:30→18:41)
[2017-08-24 06:12] LABS: ADD MAN DIFF? NO
[2017-08-24 06:16] LABS: WHITE BLOOD COUNT 7.4 10^3/ul (4.8-10.8)
[2017-08-24 06:16] LABS: BASOPHILS % 0.5 % (0.0-2.0); EOSINOPHILS # 0.1 10^3/ul (0.0-0.5); EOSINOPHILS % 0.8 % (0.0-7.0); HEMATOCRIT 29.6 % (37.0-47.0); HEMOGLOBIN 9.7 g/dl (12.0-16.0); LYMPHOCYTES # 0.7 10^3/ul (0.8-2.9); LYMPHOCYTES % 8.8 % (15.0-51.0); MEAN CORPUSCULAR HEMOGLOBIN 27.7 pg (29.0-33.0); MEAN CORPUSCULAR HGB CONC 32.8 g/dl (32.0-37.0); MEAN CORPUSCULAR VOLUME 84.6 fl (82.0-101.0); MEAN PLATELET VOLUME 8.7 fl (7.4-10.4); MONOCYTE # 0.6 10^3/ul (0.3-0.9); MONOCYTES % 8.6 % (0.0-11.0); NEUTROPHIL # 5.8 10^3/ul (1.6-7.5); PLATELET COUNT 122 10^3/UL (140-415); RED CELL DISTRIBUTION WIDTH 18.2 % (11.5-14.5)
[2017-08-24 06:34] LABS: INR 1.33; PROTIME 16.7 Sec (11.9-14.9); PT RATIO 1.3
[2017-08-24 06:35] LABS: PARTIAL THROMBOPLASTIN TIME 30.9 Sec (25.0-35.0)
[2017-08-24 06:46] LABS: ALANINE AMINOTRANSFERASE 16 IU/L (13-69); ALBUMIN 3.6 g/dl (3.3-4.9); ALKALINE PHOSPHATASE 39 IU/L (42-121); ANION GAP 17 (8-16); ASPARTATE AMINO TRANSFERASE 13 IU/L (15-46); BILIRUBIN,INDIRECT 0.5 mg/dl (0-1.1); BILIRUBIN,TOTAL 0.5 mg/dl (0.2-1.3); BLOOD UREA NITROGEN 22 mg/dl (7-20); CALCIUM 8.7 mg/dl (8.4-10.2); CARBON DIOXIDE 22 mmol/L (21-31); CHLORIDE 105 mmol/L (97-110); CREATININE 3.31 mg/dl (0.44-1.00); GLUCOSE 99 mg/dl (70-220); SODIUM 140 mmol/L (135-144); TOTAL PROTEIN 5.4 g/dl (6.1-8.1)
[2017-08-24] MEDS: ALBUMIN HUMAN 5% 500ML INJ CATHETER (09:00)
[2017-08-24] MEDS: SUCRALFATE 1 GM TAB PO ×2 (09:08→18:41)
[2017-08-24] MEDS: METOCLOPRAMIDE 10 MG INJ IV ×3 (09:08→20:33)
[2017-08-24] MEDS: CALCIUM GLUCONATE 10% 2 GM in DEXTROSE 5% 100 ML IVPB ×2 (09:09→11:29)
[2017-08-24] MEDS: EPOETIN ALFA 1,000 UNITS/0.1 ML VIAL SC (18:41)
[2017-08-25 05:07] LABS: ADD MAN DIFF? NO
[2017-08-25 05:12] LABS: WHITE BLOOD COUNT 7.8 10^3/ul (4.8-10.8)
[2017-08-25 05:12] LABS: BASOPHILS % 0.4 % (0.0-2.0); EOSINOPHILS # 0.1 10^3/ul (0.0-0.5); EOSINOPHILS % 0.9 % (0.0-7.0); HEMATOCRIT 28.3 % (37.0-47.0); HEMOGLOBIN 9.2 g/dl (12.0-16.0); LYMPHOCYTES # 0.7 10^3/ul (0.8-2.9); LYMPHOCYTES % 8.8 % (15.0-51.0); MEAN CORPUSCULAR HEMOGLOBIN 27.3 pg (29.0-33.0); MEAN CORPUSCULAR HGB CONC 32.5 g/dl (32.0-37.0); MEAN PLATELET VOLUME 8.8 fl (7.4-10.4); MONOCYTE # 0.6 10^3/ul (0.3-0.9); MONOCYTES % 7.6 % (0.0-11.0); NEUTROPHIL # 6.3 10^3/ul (1.6-7.5); NEUTROPHILS % 80.8 % (39.0-77.0); NUCLEATED RED BLOOD CELLS% 0.3 /100WBC (0.0-0.0); PLATELET COUNT 114 10^3/UL (140-415); RED BLOOD COUNT 3.37 10^6/ul (4.20-5.40); RED CELL DISTRIBUTION WIDTH 18.5 % (11.5-14.5)
[2017-08-25 05:31] LABS: INR 1.23; PROTIME 15.7 Sec (11.9-14.9); PT RATIO 1.2
[2017-08-25 05:32] LABS: PARTIAL THROMBOPLASTIN TIME 32.3 Sec (25.0-35.0)
[2017-08-25 05:33] LABS: ANION GAP 15 (8-16); BLOOD UREA NITROGEN 22 mg/dl (7-20); CALCIUM 8.9 mg/dl (8.4-10.2); CARBON DIOXIDE 21 mmol/L (21-31); CHLORIDE 110 mmol/L (97-110); CREATININE 3.64 mg/dl (0.44-1.00); GLUCOSE 94 mg/dl (70-220); MAGNESIUM 1.3 mg/dl (1.7-2.5); PHOSPHORUS 3.3 mg/dl (2.5-4.9); POTASSIUM 4.2 mmol/L (3.5-5.1); SODIUM 142 mmol/L (135-144)
[2017-08-25] MEDS: PANTOPRAZOLE 40 MG INJ IV ×2 (05:52→17:17)
[2017-08-25 06:15] LABS: HEPATITIS C VIRAL ANTIBODY NEGATIVE (NEGATIVE)
[2017-08-25] MEDS: SUCRALFATE 1 GM TAB PO ×2 (08:23→17:17)
[2017-08-25] MEDS: METOCLOPRAMIDE 10 MG INJ IV ×3 (08:23→20:29)
[2017-08-25] MEDS ORDERED: CA GLUCONATE (50 MG/ML) IV SYG IV* (10:51)
[2017-08-25] MEDS ORDERED: SPECIAL NON-STANDARD MEDICATION HE (10:51)
[2017-08-25] MEDS: ALBUMIN HUMAN 5% 500ML INJ CATHETER (12:00)
[2017-08-25] MEDS: CITRATE DEXTROSE SOLUTION 1,000 ML SOLUTION MC (12:05)
[2017-08-25] MEDS: CALCIUM GLUCONATE 10% 2 GM in DEXTROSE 5% 100 ML IVPB (12:08)
[2017-08-25] MEDS: MAGNESIUM SULFATE 3 GM in DEXTROSE 5% 100 ML IVPB (14:34)
[2017-08-25 19:26] LABS: COMPLEMENT, TOTAL (CH50) 60 U/mL (31-60)
[2017-08-25] MEDS: HEPARIN 1000 UNITS/ML 10 ML INJ CATHETER (21:16)
[2017-08-26 05:13] LABS: ADD MAN DIFF? NO
[2017-08-26 05:16] LABS: BASOPHILS % 0.4 % (0.0-2.0); EOSINOPHILS # 0.1 10^3/ul (0.0-0.5); EOSINOPHILS % 0.9 % (0.0-7.0); HEMATOCRIT 32.2 % (37.0-47.0); HEMOGLOBIN 10.4 g/dl (12.0-16.0); LYMPHOCYTES % 14.9 % (15.0-51.0); MEAN CORPUSCULAR HEMOGLOBIN 27.2 pg (29.0-33.0); MEAN CORPUSCULAR HGB CONC 32.3 g/dl (32.0-37.0); MEAN CORPUSCULAR VOLUME 84.3 fl (82.0-101.0); MEAN PLATELET VOLUME 8.9 fl (7.4-10.4); MONOCYTE # 0.6 10^3/ul (0.3-0.9); MONOCYTES % 9.2 % (0.0-11.0); NEUTROPHILS % 72.4 % (39.0-77.0); PLATELET COUNT 132 10^3/UL (140-415); RED BLOOD COUNT 3.82 10^6/ul (4.20-5.40); RED CELL DISTRIBUTION WIDTH 18.2 % (11.5-14.5)
[2017-08-26 05:34] LABS: ALANINE AMINOTRANSFERASE 22 IU/L (13-69); ALBUMIN 3.8 g/dl (3.3-4.9); ALBUMIN/GLOBULIN RATIO 1.72; ALKALINE PHOSPHATASE 47 IU/L (42-121); ANION GAP 12 (8-16); ASPARTATE AMINO TRANSFERASE 23 IU/L (15-46); BILIRUBIN,INDIRECT 0.6 mg/dl (0-1.1); BILIRUBIN,TOTAL 0.6 mg/dl (0.2-1.3); BLOOD UREA NITROGEN 9 mg/dl (7-20); CARBON DIOXIDE 31 mmol/L (21-31); CHLORIDE 102 mmol/L (97-110); CREATININE 1.82 mg/dl (0.44-1.00); GLUCOSE 98 mg/dl (70-220); INR 1.15; PROTIME 14.9 Sec (11.9-14.9); PT RATIO 1.2; SODIUM 141 mmol/L (135-144)
[2017-08-26] MEDS: ACETAMINOPHEN 650 MG SUPP PR (06:21)
[2017-08-26] MEDS: PANTOPRAZOLE 40 MG INJ IV ×2 (06:21→18:01)
[2017-08-26] MEDS: SUCRALFATE 1 GM TAB PO ×2 (09:28→18:01)
[2017-08-26] MEDS: METOCLOPRAMIDE 10 MG INJ IV ×3 (09:28→21:07)
[2017-08-26] MEDS ORDERED: CA GLUCONATE (50 MG/ML) IV SYG IV* (10:06)
[2017-08-26] MEDS: CITRATE DEXTROSE SOLUTION 1,000 ML SOLUTION MC ×3 (10:06→11:27)
[2017-08-26 11:20] LABS: TYPE AND SCREEN 1 1
[2017-08-26] MEDS: CALCIUM GLUCONATE 10% 2 GM in SOD CHLORIDE 0.9% 100 ML IVPB (11:26)
[2017-08-26] MEDS: ALBUMIN HUMAN 5% 500ML INJ CATHETER (11:27)
[2017-08-26] MEDS: DIPHENHYDRAMINE 50 MG INJ IV (13:37)
[2017-08-26] MEDS: CLONIDINE 0.1 MG/24 HR PATCH TRANSDERM (14:32)
[2017-08-26] MEDS: EPOETIN 10000 UNITS/1 ML INJ (ESRD) SC (18:02)
[2017-08-27 05:32] LABS: ADD MAN DIFF? NO
[2017-08-27] MEDS: PANTOPRAZOLE 40 MG INJ IV ×2 (05:38→17:46)
[2017-08-27 05:41] LABS: BASOPHILS % 0.7 % (0.0-2.0); EOSINOPHILS # 0.1 10^3/ul (0.0-0.5); EOSINOPHILS % 1.9 % (0.0-7.0); HEMATOCRIT 26.4 % (37.0-47.0); HEMOGLOBIN 8.4 g/dl (12.0-16.0); LYMPHOCYTES # 0.9 10^3/ul (0.8-2.9); LYMPHOCYTES % 21.2 % (15.0-51.0); MEAN CORPUSCULAR HEMOGLOBIN 27.5 pg (29.0-33.0); MEAN CORPUSCULAR HGB CONC 31.8 g/dl (32.0-37.0); MEAN CORPUSCULAR VOLUME 86.6 fl (82.0-101.0); MEAN PLATELET VOLUME 9.7 fl (7.4-10.4); MONOCYTE # 0.5 10^3/ul (0.3-0.9); MONOCYTES % 11.1 % (0.0-11.0); NEUTROPHIL # 2.7 10^3/ul (1.6-7.5); PLATELET COUNT 107 10^3/UL (140-415); RED BLOOD COUNT 3.05 10^6/ul (4.20-5.40); RED CELL DISTRIBUTION WIDTH 18.7 % (11.5-14.5)
[2017-08-27 05:41] LABS: WHITE BLOOD COUNT 4.3 10^3/ul (4.8-10.8)
[2017-08-27 06:00] LABS: ANION GAP 13 (8-16); BLOOD UREA NITROGEN 13 mg/dl (7-20); CALCIUM 8.7 mg/dl (8.4-10.2); CARBON DIOXIDE 25 mmol/L (21-31); CHLORIDE 110 mmol/L (97-110); GLUCOSE 85 mg/dl (70-220); MAGNESIUM 1.9 mg/dl (1.7-2.5); PHOSPHORUS 3.4 mg/dl (2.5-4.9); SODIUM 143 mmol/L (135-144)
[2017-08-27] MEDS: METOCLOPRAMIDE 10 MG INJ IV ×3 (08:58→21:21)
[2017-08-27] MEDS: SUCRALFATE 1 GM TAB PO ×2 (08:59→17:46)
[2017-08-27 13:31] LABS: POTASSIUM 4.9 mmol/L (3.5-5.1)
[2017-08-28 05:28] LABS: ADD MAN DIFF? NO
[2017-08-28 05:35] LABS: WHITE BLOOD COUNT 5.9 10^3/ul (4.8-10.8)
[2017-08-28 05:35] LABS: BASOPHILS % 0.5 % (0.0-2.0); EOSINOPHILS % 0.7 % (0.0-7.0); HEMATOCRIT 26.3 % (37.0-47.0); HEMOGLOBIN 8.3 g/dl (12.0-16.0); LYMPHOCYTES # 0.6 10^3/ul (0.8-2.9); LYMPHOCYTES % 10.3 % (15.0-51.0); MEAN CORPUSCULAR HEMOGLOBIN 27.5 pg (29.0-33.0); MEAN CORPUSCULAR HGB CONC 31.6 g/dl (32.0-37.0); MEAN CORPUSCULAR VOLUME 87.1 fl (82.0-101.0); MEAN PLATELET VOLUME 9.7 fl (7.4-10.4); MONOCYTE # 0.5 10^3/ul (0.3-0.9); MONOCYTES % 7.6 % (0.0-11.0); NEUTROPHIL # 4.8 10^3/ul (1.6-7.5); NEUTROPHILS % 79.9 % (39.0-77.0); PLATELET COUNT 119 10^3/UL (140-415); RED BLOOD COUNT 3.02 10^6/ul (4.20-5.40); RED CELL DISTRIBUTION WIDTH 18.2 % (11.5-14.5)
[2017-08-28 05:56] LABS: ANION GAP 13 (8-16); BLOOD UREA NITROGEN 19 mg/dl (7-20); CARBON DIOXIDE 23 mmol/L (21-31); CHLORIDE 106 mmol/L (97-110); CREATININE 3.33 mg/dl (0.44-1.00); GLUCOSE 87 mg/dl (70-220); MAGNESIUM 1.7 mg/dl (1.7-2.5); PHOSPHORUS 3.5 mg/dl (2.5-4.9); POTASSIUM 5.6 mmol/L (3.5-5.1); SODIUM 136 mmol/L (135-144)
[2017-08-28] MEDS: PANTOPRAZOLE 40 MG INJ IV ×2 (05:57→17:22)
[2017-08-28] MEDS: SUCRALFATE 1 GM TAB PO ×2 (09:11→17:22)
[2017-08-28] MEDS: METOCLOPRAMIDE 10 MG INJ IV ×2 (09:11→13:00)
[2017-08-28] MEDS: HEPARIN 1000 UNITS/ML 10 ML INJ CATHETER (16:57)
[2017-08-28] MEDS: EPOETIN 10000 UNITS/1 ML INJ (ESRD) SC (17:33)
[2017-09-01 21:17] LABS: ALBUMIN 4.2 g/dL (3.8-4.8); ALPHA-1-GLOBULINS 0.3 g/dL (0.2-0.3); ALPHA-2-GLOBULINS 0.5 g/dL (0.5-0.9); BETA 2 GLOBULINS 0.2 g/dL (0.2-0.5); BETA GLOBULINS 0.2 g/dL (0.4-0.6); GAMMA GLOBULINS 0.6 g/dL (0.8-1.7)
== END 2017-08-28 18:53 | disposition home or self-care (01) | DRG 673 ==
LOC: MS2 23:01 → MS1 08-24 23:50 → E/R 19:30
PROC: 07DR3ZX Extraction of Iliac Bone Marrow, Percutaneous Approach, Diagnostic (ICD-10-PCS; principal; 2017-08-13 12:20)
PROC: 0QB13ZX Excision of Sacrum, Percutaneous Approach, Diagnostic (ICD-10-PCS; 2017-08-13 12:20)
PROC: 0TB13ZX Excision of Left Kidney, Percutaneous Approach, Diagnostic (ICD-10-PCS; 2017-08-13 12:20)
PROC: 0JH63XZ Insertion of Tunneled Vascular Access Device into Chest Subcutaneous Tissue and Fascia, Percutaneous Approach (ICD-10-PCS; 2017-08-13 12:20)
PROC: 02H633Z Insertion of Infusion Device into Right Atrium, Percutaneous Approach (ICD-10-PCS; 2017-08-13 12:20)
PROC: B2141ZZ Fluoroscopy of Right Heart using Low Osmolar Contrast (ICD-10-PCS; 2017-08-13 12:20)
PROC: 0DB68ZX Excision of Stomach, Via Natural or Artificial Opening Endoscopic, Diagnostic (ICD-10-PCS; 2017-08-13 12:20)
PROC: 30233K1 Transfusion of Nonautologous Frozen Plasma into Peripheral Vein, Percutaneous Approach (ICD-10-PCS; 2017-08-13 12:20)
PROC: 30233N1 Transfusion of Nonautologous Red Blood Cells into Peripheral Vein, Percutaneous Approach (ICD-10-PCS; 2017-08-13 12:20)
PROC: 5A1D70Z Performance of Urinary Filtration, Intermittent, Less than 6 Hours Per Day (ICD-10-PCS; 2017-08-13 12:20)
DX: N17.0 Acute kidney failure with tubular necrosis (principal); I50.33 Acute on chronic diastolic (congestive) heart failure; K22.10 Ulcer of esophagus without bleeding; C90.00 Multiple myeloma not having achieved remission; J90 Pleural effusion, not elsewhere classified; N39.0 Urinary tract infection, site not specified; E87.0 Hyperosmolality and hypernatremia; E44.0 Moderate protein-calorie malnutrition; E87.2 Acidosis; K92.1 Melena; R11.2 Nausea with vomiting, unspecified; E86.0 Dehydration; D63.8 Anemia in other chronic diseases classified elsewhere; K29.70 Gastritis, unspecified, without bleeding; Z68.24 Body mass index [BMI] 24.0-24.9, adult; F32.9 Major depressive disorder, single episode, unspecified; R32 Unspecified urinary incontinence; G31.84 Mild cognitive impairment of uncertain or unknown etiology; R16.1 Splenomegaly, not elsewhere classified; R63.0 Anorexia; K44.9 Diaphragmatic hernia without obstruction or gangrene; N28.89 Other specified disorders of kidney and ureter; M89.9 Disorder of bone, unspecified
CPT/HCPCS: 36415; 36430; 36514; 36600; 71045; 72195; 74176; 76775; 76856; 76937; 77012; 80048; 80053; 81001; 81003; 82270; 82378; 82570; 82607; 82728; 82746; 82784; 82803; 83540; 83605; 83615; 83690; 83735; 84100; 84132; 84155; 84156; 84165; 84166; 84300; 84443; 84484; 84560; 85025; 85045; 85384; 85576; 85610; 85651; 85730; 86021; 86038; 86160; 86162; 86301; 86304; 86320; 86325; 86706; 86803; 86850; 86900; 86901; 86920; 87340; 88305; 88307; 88312; 88313; 90935; 93005; 93306; 93976; 96374; 97110; 97116; 97161; 97165; 97530; 97535; 99285-25

== ENCOUNTER 2017-10-16 05:47 | Day surgery (SDC) | payer MEDICARE, BC ==
[2017-10-16 06:51] LABS: ADD MAN DIFF? NO
[2017-10-16 06:56] LABS: WHITE BLOOD COUNT 5.8 10^3/ul (4.8-10.8)
[2017-10-16 06:56] LABS: BASOPHILS % 0.2 % (0.0-2.0); EOSINOPHILS % 0.2 % (0.0-7.0); HEMATOCRIT 28.4 % (37.0-47.0); HEMOGLOBIN 8.7 g/dl (12.0-16.0); LYMPHOCYTES # 0.7 10^3/ul (0.8-2.9); LYMPHOCYTES % 11.2 % (15.0-51.0); MEAN CORPUSCULAR HEMOGLOBIN 26.7 pg (29.0-33.0); MEAN CORPUSCULAR HGB CONC 30.6 g/dl (32.0-37.0); MEAN CORPUSCULAR VOLUME 87.1 fl (82.0-101.0); MEAN PLATELET VOLUME 9.1 fl (7.4-10.4); MONOCYTE # 0.5 10^3/ul (0.3-0.9); MONOCYTES % 8.1 % (0.0-11.0); NEUTROPHIL # 4.5 10^3/ul (1.6-7.5); NEUTROPHILS % 77.9 % (39.0-77.0); PLATELET COUNT 217 10^3/UL (140-415); RED BLOOD COUNT 3.26 10^6/ul (4.20-5.40); RED CELL DISTRIBUTION WIDTH 15.2 % (11.5-14.5)
[2017-10-16] MEDS ORDERED: PROPOFOL 200 MG INJ (07:00)
[2017-10-16 07:01] LABS: HOLD TRANSMISSIONS 1
[2017-10-16 07:16] LABS: INR 1.04; PROTIME 13.7 Sec (11.9-14.9); PT RATIO 1.1
[2017-10-16] MEDS ORDERED: THROMBIN 5000 UNIT VIAL (07:18)
[2017-10-16] MEDS ORDERED: GELATIN SIZE 100 SPONGE (07:18)
[2017-10-16] MEDS ORDERED: LIDOCAINE 1% (MPF) 30 ML INJ (07:18)
[2017-10-16 07:25] LABS: ALANINE AMINOTRANSFERASE 17 IU/L (13-69); ALBUMIN 3.5 g/dl (3.3-4.9); ALBUMIN/GLOBULIN RATIO 1.16; ALKALINE PHOSPHATASE 78 IU/L (42-121); ANION GAP 14 (8-16); ASPARTATE AMINO TRANSFERASE 16 IU/L (15-46); BILIRUBIN,INDIRECT 0.1 mg/dl (0-1.1); BILIRUBIN,TOTAL 0.1 mg/dl (0.2-1.3); CARBON DIOXIDE 33 mmol/L (21-31); CHLORIDE 94 mmol/L (97-110); GLUCOSE 127 mg/dl (70-220); TOTAL PROTEIN 6.5 g/dl (6.1-8.1)
[2017-10-16 07:35] LABS: CALCIUM 9.6 mg/dl (8.4-10.2); POTASSIUM 4.4 mmol/L (3.5-5.1); SODIUM 137 mmol/L (135-144)
[2017-10-16 07:38] LABS: BLOOD UREA NITROGEN 33 mg/dl (7-20); CREATININE 2.41 mg/dl (0.44-1.00)
[2017-10-16 07:50] LABS: PARTIAL THROMBOPLASTIN TIME 23.1 Sec (25.0-35.0)
[2017-10-16] MEDS ORDERED: ROPIVACAINE 0.5 % 30 ML VIAL (07:58)
[2017-10-16] MEDS ORDERED: ONDANSETRON 4 MG INJ (07:58)
[2017-10-16] MEDS ORDERED: FENTAnyl 50 MCG/ML VIAL ×2 (07:58→08:35)
[2017-10-16] MEDS ORDERED: hydrALAzine 20 MG INJ (08:17)
[2017-10-16] MEDS ORDERED: FAMOTIDINE 20 MG INJ (08:35)
[2017-10-16] MEDS: HEPARIN 1000 UNITS/ML 10 ML INJ (08:50)
== END 2017-10-16 11:27 | disposition home or self-care (01) ==
LOC: SDS 05:47
DX: I12.0 Hypertensive chronic kidney disease with stage 5 chronic kidney disease or end stage renal disease (principal); N18.6 End stage renal disease
CPT/HCPCS: 36821; 80053; 85025; 85610; 85730

== ENCOUNTER 2017-11-27 21:15 | Inpatient (IN) | payer MEDICARE, OTHER, BC ==
[2017-11-27 21:47] LABS: ADD MAN DIFF? NO
[2017-11-27 21:51] LABS: ABNORMAL IP MESSAGE 1; BASOPHILS % 0.7 % (0.0-2.0); EOSINOPHILS # 0.1 10^3/ul (0.0-0.5); EOSINOPHILS % 4.5 % (0.0-7.0); HEMATOCRIT 23.5 % (37.0-47.0); HEMOGLOBIN 7.3 g/dl (12.0-16.0); LYMPHOCYTES # 0.4 10^3/ul (0.8-2.9); LYMPHOCYTES % 13.1 % (15.0-51.0); MEAN CORPUSCULAR HEMOGLOBIN 26.9 pg (29.0-33.0); MEAN CORPUSCULAR HGB CONC 31.1 g/dl (32.0-37.0); MEAN CORPUSCULAR VOLUME 86.7 fl (82.0-101.0); MEAN PLATELET VOLUME 9.8 fl (7.4-10.4); MONOCYTE # 0.3 10^3/ul (0.3-0.9); MONOCYTES % 10.7 % (0.0-11.0); NEUTROPHILS % 69.3 % (39.0-77.0); PLATELET COUNT 127 10^3/UL (140-415); RED BLOOD COUNT 2.71 10^6/ul (4.20-5.40); RED CELL DISTRIBUTION WIDTH 15.1 % (11.5-14.5)
[2017-11-27 21:51] LABS: WHITE BLOOD COUNT 2.9 10^3/ul (4.8-10.8)
[2017-11-27 21:52] LABS: POSITIVE DIFF @See below
[2017-11-27 22:10] LABS: INR 1.06; PROTIME 13.9 Sec (11.9-14.9); PT RATIO 1.1
[2017-11-27 22:11] LABS: PARTIAL THROMBOPLASTIN TIME 35.2 Sec (25.0-35.0)
[2017-11-27 22:15] LABS: ALANINE AMINOTRANSFERASE 11 IU/L (13-69); ALBUMIN 2.6 g/dl (3.3-4.9); ALBUMIN/GLOBULIN RATIO 0.96; ALKALINE PHOSPHATASE 65 IU/L (42-121); ANION GAP 8 (8-16); ASPARTATE AMINO TRANSFERASE 25 IU/L (15-46); BILIRUBIN,INDIRECT 0.3 mg/dl (0-1.1); BILIRUBIN,TOTAL 0.3 mg/dl (0.2-1.3); BLOOD UREA NITROGEN 27 mg/dl (7-20); CALCIUM 9.2 mg/dl (8.4-10.2); CARBON DIOXIDE 32 mmol/L (21-31); CHLORIDE 97 mmol/L (97-110); CREATININE 2.33 mg/dl (0.44-1.00); GLUCOSE 102 mg/dl (70-220); POTASSIUM 3.8 mmol/L (3.5-5.1); SODIUM 133 mmol/L (135-144); TOTAL PROTEIN 5.3 g/dl (6.1-8.1)
[2017-11-27 22:25] LABS: TROPONIN-I 0.017 ng/ml (0.000-0.120)
[2017-11-27] MEDS: PANTOPRAZOLE 40 MG INJ IV (23:24)
[2017-11-27] MEDS: PANTOPRAZOLE IV 80 MG in SOD CHLORIDE 0.9% 100 ML IVPB (23:24)
[2017-11-28 01:53] LABS: IMMEDIATE SPIN CROSSMATCH 1 1
[2017-11-28] MEDS: SOD CHLORIDE 0.9% 250 ML IV (02:14)
[2017-11-28] MEDS ORDERED: ACETAMINOPHEN 325 MG TAB PO (06:30)
[2017-11-28] MEDS ORDERED: NACL 0.9% 3 ML SYG IV (06:30)
[2017-11-28] MEDS ORDERED: ALBUTEROL/IPRATROPIUM (NEB) 3 ML AMP HHN (06:30)
[2017-11-28 08:18] LABS: ADD MAN DIFF? NO
[2017-11-28 08:20] LABS: ABNORMAL IP MESSAGE 1; BASOPHIL # 0.1 10^3/ul (0.0-0.1); BASOPHILS % 1.5 % (0.0-2.0); EOSINOPHILS # 0.1 10^3/ul (0.0-0.5); EOSINOPHILS % 4.2 % (0.0-7.0); HEMATOCRIT 27.3 % (37.0-47.0); HEMOGLOBIN 8.5 g/dl (12.0-16.0); LYMPHOCYTES # 0.4 10^3/ul (0.8-2.9); MEAN CORPUSCULAR HGB CONC 31.1 g/dl (32.0-37.0); MEAN CORPUSCULAR VOLUME 86.7 fl (82.0-101.0); MEAN PLATELET VOLUME 9.9 fl (7.4-10.4); MONOCYTE # 0.4 10^3/ul (0.3-0.9); MONOCYTES % 11.9 % (0.0-11.0); NEUTROPHIL # 2.3 10^3/ul (1.6-7.5); NEUTROPHILS % 69.9 % (39.0-77.0); PLATELET COUNT 117 10^3/UL (140-415); RED BLOOD COUNT 3.15 10^6/ul (4.20-5.40); RED CELL DISTRIBUTION WIDTH 15.4 % (11.5-14.5)
[2017-11-28 08:20] LABS: WHITE BLOOD COUNT 3.4 10^3/ul (4.8-10.8)
[2017-11-28 08:28] LABS: POSITIVE DIFF @See below
[2017-11-28 08:37] LABS: ANION GAP 8 (8-16); BLOOD UREA NITROGEN 27 mg/dl (7-20); CALCIUM 9.5 mg/dl (8.4-10.2); CARBON DIOXIDE 33 mmol/L (21-31); CHLORIDE 98 mmol/L (97-110); CREATININE 2.57 mg/dl (0.44-1.00); GLUCOSE 82 mg/dl (70-220); POTASSIUM 3.7 mmol/L (3.5-5.1); SODIUM 135 mmol/L (135-144)
[2017-11-28] MEDS: PANTOPRAZOLE 40 MG INJ IV (09:04)
[2017-11-28] MEDS: METOPROLOL (XL) 100 MG TAB PO (09:05)
[2017-11-28] MEDS: FOLIC ACID 1 MG TAB PO (09:05)
[2017-11-28] MEDS: SUCRALFATE 1 GM TAB PO ×2 (09:05→17:39)
[2017-11-28] MEDS: traMADol 50 MG TAB PO ×2 (09:06→21:02)
[2017-11-29] MEDS: PANTOPRAZOLE 40 MG INJ IV (06:05)
[2017-11-29] MEDS: SUCRALFATE 1 GM TAB PO ×2 (08:12→17:45)
[2017-11-29] MEDS: METOPROLOL (XL) 100 MG TAB PO (08:12)
[2017-11-29] MEDS: FOLIC ACID 1 MG TAB PO (08:12)
[2017-11-29] MEDS: traMADol 50 MG TAB PO ×2 (08:14→20:45)
[2017-11-29 09:03] LABS: ADD MAN DIFF? NO
[2017-11-29 09:10] LABS: WHITE BLOOD COUNT 3.8 10^3/ul (4.8-10.8)
[2017-11-29 09:10] LABS: ABNORMAL IP MESSAGE 1; BASOPHILS % 0.8 % (0.0-2.0); EOSINOPHILS # 0.2 10^3/ul (0.0-0.5); EOSINOPHILS % 5.8 % (0.0-7.0); HEMATOCRIT 27.5 % (37.0-47.0); HEMOGLOBIN 8.8 g/dl (12.0-16.0); LYMPHOCYTES # 0.5 10^3/ul (0.8-2.9); LYMPHOCYTES % 14.1 % (15.0-51.0); MEAN CORPUSCULAR HEMOGLOBIN 27.7 pg (29.0-33.0); MEAN CORPUSCULAR VOLUME 86.5 fl (82.0-101.0); MEAN PLATELET VOLUME 9.5 fl (7.4-10.4); MONOCYTE # 0.4 10^3/ul (0.3-0.9); MONOCYTES % 11.5 % (0.0-11.0); NEUTROPHIL # 2.5 10^3/ul (1.6-7.5); NEUTROPHILS % 65.7 % (39.0-77.0); PLATELET COUNT 146 10^3/UL (140-415); RED BLOOD COUNT 3.18 10^6/ul (4.20-5.40); RED CELL DISTRIBUTION WIDTH 15.6 % (11.5-14.5)
[2017-11-29 09:17] LABS: POSITIVE DIFF @See below
[2017-11-29 09:46] LABS: ALANINE AMINOTRANSFERASE 18 IU/L (13-69); ALBUMIN 2.5 g/dl (3.3-4.9); ALKALINE PHOSPHATASE 69 IU/L (42-121); ANION GAP 13 (8-16); ASPARTATE AMINO TRANSFERASE 18 IU/L (15-46); BILIRUBIN,INDIRECT 0.4 mg/dl (0-1.1); BILIRUBIN,TOTAL 0.4 mg/dl (0.2-1.3); BLOOD UREA NITROGEN 34 mg/dl (7-20); CALCIUM 9.8 mg/dl (8.4-10.2); CARBON DIOXIDE 29 mmol/L (21-31); CHLORIDE 96 mmol/L (97-110); CREATININE 3.48 mg/dl (0.44-1.00); GLUCOSE 57 mg/dl (70-220); MAGNESIUM 1.7 mg/dl (1.7-2.5); POTASSIUM 4.2 mmol/L (3.5-5.1); SODIUM 134 mmol/L (135-144)
[2017-11-29] MEDS: FLUTICASONE/VILANTEROL 200-25 INH DEVICE INH (09:50)
[2017-11-30] MEDS: PANTOPRAZOLE 40 MG INJ IV ×2 (05:45→18:02)
[2017-11-30] MEDS: SUCRALFATE 1 GM TAB PO ×2 (08:08→18:01)
[2017-11-30] MEDS: traMADol 50 MG TAB PO ×2 (08:08→21:34)
[2017-11-30] MEDS: FLUTICASONE/VILANTEROL 200-25 INH DEVICE INH (08:08)
[2017-11-30] MEDS: FOLIC ACID 1 MG TAB PO (08:08)
[2017-11-30] MEDS: METOPROLOL (XL) 100 MG TAB PO (08:09)
[2017-11-30] MEDS: TRIMETHOPRIM/SULFAMETHOX (DS) TAB PO (14:09)
[2017-11-30 14:54] LABS: ADD MAN DIFF? NO
[2017-11-30 15:23] LABS: WHITE BLOOD COUNT 3.9 10^3/ul (4.8-10.8)
[2017-11-30 15:23] LABS: ABNORMAL IP MESSAGE 1; BASOPHILS % 0.8 % (0.0-2.0); EOSINOPHILS # 0.3 10^3/ul (0.0-0.5); EOSINOPHILS % 7.2 % (0.0-7.0); HEMATOCRIT 29.1 % (37.0-47.0); HEMOGLOBIN 9.2 g/dl (12.0-16.0); LYMPHOCYTES # 0.6 10^3/ul (0.8-2.9); LYMPHOCYTES % 14.4 % (15.0-51.0); MEAN CORPUSCULAR HEMOGLOBIN 27.6 pg (29.0-33.0); MEAN CORPUSCULAR HGB CONC 31.6 g/dl (32.0-37.0); MEAN CORPUSCULAR VOLUME 87.4 fl (82.0-101.0); MEAN PLATELET VOLUME 9.5 fl (7.4-10.4); MONOCYTE # 0.4 10^3/ul (0.3-0.9); MONOCYTES % 10.8 % (0.0-11.0); NEUTROPHIL # 2.5 10^3/ul (1.6-7.5); NEUTROPHILS % 63.7 % (39.0-77.0); PLATELET COUNT 175 10^3/UL (140-415); RED BLOOD COUNT 3.33 10^6/ul (4.20-5.40); RED CELL DISTRIBUTION WIDTH 15.5 % (11.5-14.5); RETICULOCYTE COUNT # 0.071 X10^6 (0.020-0.110); RETICULOCYTE COUNT % 2.2 % (0.5-1.5)
[2017-11-30 15:28] LABS: POSITIVE DIFF @See below
[2017-11-30 16:23] LABS: FOLATE 18.7 ng/ml (2.8-20.0)
[2017-11-30 16:59] LABS: HEPATITIS B SURFACE ANTIGEN NEGATIVE (NEGATIVE)
[2017-11-30] MEDS: ALBUMIN HUMAN 25% 100 ML IV ×2 (18:42→19:49)
[2017-12-01] MEDS: PANTOPRAZOLE 40 MG INJ IV ×2 (05:27→17:58)
[2017-12-01] MEDS: FOLIC ACID 1 MG TAB PO (08:21)
[2017-12-01] MEDS: TRIMETHOPRIM/SULFAMETHOX (DS) TAB PO (08:21)
[2017-12-01] MEDS: SUCRALFATE 1 GM TAB PO ×2 (08:21→17:58)
[2017-12-01] MEDS: METOPROLOL (XL) 100 MG TAB PO (08:24)
[2017-12-01] MEDS: FLUTICASONE/VILANTEROL 200-25 INH DEVICE INH (08:24)
[2017-12-01] MEDS: traMADol 50 MG TAB PO ×2 (08:38→21:00)
[2017-12-01 08:43] LABS: ADD MAN DIFF? NO
[2017-12-01 08:51] LABS: BASOPHILS % 0.7 % (0.0-2.0); EOSINOPHILS # 0.2 10^3/ul (0.0-0.5); HEMATOCRIT 25.1 % (37.0-47.0); HEMOGLOBIN 7.8 g/dl (12.0-16.0); LYMPHOCYTES # 0.6 10^3/ul (0.8-2.9); LYMPHOCYTES % 14.9 % (15.0-51.0); MEAN CORPUSCULAR HEMOGLOBIN 27.1 pg (29.0-33.0); MEAN CORPUSCULAR HGB CONC 31.1 g/dl (32.0-37.0); MEAN CORPUSCULAR VOLUME 87.2 fl (82.0-101.0); MEAN PLATELET VOLUME 9.4 fl (7.4-10.4); MONOCYTE # 0.4 10^3/ul (0.3-0.9); MONOCYTES % 10.9 % (0.0-11.0); NEUTROPHIL # 2.7 10^3/ul (1.6-7.5); NEUTROPHILS % 66.8 % (39.0-77.0); PLATELET COUNT 158 10^3/UL (140-415); RED BLOOD COUNT 2.88 10^6/ul (4.20-5.40); RED CELL DISTRIBUTION WIDTH 15.5 % (11.5-14.5)
[2017-12-01 09:54] LABS: ANION GAP 11 (8-16); BLOOD UREA NITROGEN 23 mg/dl (7-20); CALCIUM 9.5 mg/dl (8.4-10.2); CARBON DIOXIDE 30 mmol/L (21-31); CHLORIDE 96 mmol/L (97-110); CREATININE 2.85 mg/dl (0.44-1.00); GLUCOSE 82 mg/dl (70-220); POTASSIUM 4.4 mmol/L (3.5-5.1); SODIUM 133 mmol/L (135-144)
[2017-12-01] MEDS: BALSAM PERU/CASTOR OIL 60 GM TUBE TOP (14:46)
[2017-12-01] MEDS: BISACODYL (EC) 5 MG TAB PO (17:58)
[2017-12-01 18:31] LABS: AHG CROSSMATCH 1 2
[2017-12-01] MEDS: HEPARIN 1000 UNITS/ML 10 ML INJ CATHETER (21:39)
[2017-12-02] MEDS: BALSAM PERU/CASTOR OIL 60 GM TUBE TOP ×3 (01:01→20:40)
[2017-12-02] MEDS: PEG/ELECTROLYTES 4L BTL PO (01:01)
[2017-12-02] MEDS: ONDANSETRON 4 MG INJ IV (01:04)
[2017-12-02 06:54] LABS: ADD MAN DIFF? NO
[2017-12-02 06:59] LABS: EOSINOPHILS # 0.2 10^3/ul (0.0-0.5); EOSINOPHILS % 4.1 % (0.0-7.0); HEMATOCRIT 29.6 % (37.0-47.0); HEMOGLOBIN 9.6 g/dl (12.0-16.0); LYMPHOCYTES # 0.6 10^3/ul (0.8-2.9); LYMPHOCYTES % 15.2 % (15.0-51.0); MEAN CORPUSCULAR HEMOGLOBIN 27.8 pg (29.0-33.0); MEAN CORPUSCULAR HGB CONC 32.4 g/dl (32.0-37.0); MEAN CORPUSCULAR VOLUME 85.8 fl (82.0-101.0); MEAN PLATELET VOLUME 8.9 fl (7.4-10.4); MONOCYTE # 0.4 10^3/ul (0.3-0.9); MONOCYTES % 10.6 % (0.0-11.0); NEUTROPHIL # 2.6 10^3/ul (1.6-7.5); NEUTROPHILS % 66.3 % (39.0-77.0); PLATELET COUNT 153 10^3/UL (140-415); RED BLOOD COUNT 3.45 10^6/ul (4.20-5.40); RED CELL DISTRIBUTION WIDTH 14.9 % (11.5-14.5)
[2017-12-02 07:20] LABS: INR 1.15; PROTIME 14.9 Sec (11.9-14.9); PT RATIO 1.2
[2017-12-02 07:21] LABS: PARTIAL THROMBOPLASTIN TIME 38.1 Sec (25.0-35.0)
[2017-12-02 07:22] LABS: ANION GAP 11 (8-16); BLOOD UREA NITROGEN 15 mg/dl (7-20); CALCIUM 9.1 mg/dl (8.4-10.2); CARBON DIOXIDE 29 mmol/L (21-31); CHLORIDE 99 mmol/L (97-110); GLUCOSE 93 mg/dl (70-220); POTASSIUM 3.8 mmol/L (3.5-5.1); SODIUM 135 mmol/L (135-144)
[2017-12-02] MEDS: PANTOPRAZOLE 40 MG INJ IV ×2 (08:27→17:02)
[2017-12-02] MEDS: FOLIC ACID 1 MG TAB PO (08:27)
[2017-12-02] MEDS: FLUTICASONE/VILANTEROL 200-25 INH DEVICE INH (08:27)
[2017-12-02] MEDS: SUCRALFATE 1 GM TAB PO ×2 (08:27→17:03)
[2017-12-02] MEDS: traMADol 50 MG TAB PO ×2 (08:28→20:39)
[2017-12-02] MEDS: METOPROLOL (XL) 100 MG TAB PO (08:29)
[2017-12-02] MEDS: TRIMETHOPRIM/SULFAMETHOX (DS) TAB PO (08:34)
[2017-12-02 10:34] LABS: OCCULT BLOOD STOOL NEGATIVE (NEGATIVE)
[2017-12-02] MEDS ORDERED: PROPOFOL 60 ML (12:59)
[2017-12-02] MEDS ORDERED: LIDOCAINE 2% (SDV) 5 ML INJ (12:59)
[2017-12-02] MEDS: EPOETIN 10000 UNITS/1 ML INJ (ESRD) SC (17:03)
[2017-12-03] MEDS: ONDANSETRON 4 MG INJ IV (05:28)
[2017-12-03] MEDS: PANTOPRAZOLE 40 MG INJ IV (06:17)
[2017-12-03] MEDS: FLUTICASONE/VILANTEROL 200-25 INH DEVICE INH (08:57)
[2017-12-03] MEDS: traMADol 50 MG TAB PO (08:59)
[2017-12-03] MEDS: NYSTATIN SUSP 5 ML CUP PO ×2 (08:59→12:40)
[2017-12-03] MEDS: SUCRALFATE 1 GM TAB PO (08:59)
[2017-12-03] MEDS: METOPROLOL (XL) 100 MG TAB PO (08:59)
[2017-12-03] MEDS: FOLIC ACID 1 MG TAB PO (08:59)
[2017-12-03] MEDS: BALSAM PERU/CASTOR OIL 60 GM TUBE TOP (08:59)
[2017-12-03] MEDS: TRIMETHOPRIM/SULFAMETHOX (DS) TAB PO (09:00)
[2017-12-03] MEDS: HYDROCORTISONE 25 MG SUPP PR (09:00)
[2017-12-03 15:45] LABS: ADD MAN DIFF? NO
[2017-12-03 15:46] LABS: WHITE BLOOD COUNT 5.4 10^3/ul (4.8-10.8)
[2017-12-03 15:46] LABS: BASOPHILS % 0.7 % (0.0-2.0); EOSINOPHILS # 0.1 10^3/ul (0.0-0.5); EOSINOPHILS % 2.4 % (0.0-7.0); HEMATOCRIT 31.3 % (37.0-47.0); LYMPHOCYTES # 0.7 10^3/ul (0.8-2.9); LYMPHOCYTES % 12.3 % (15.0-51.0); MEAN CORPUSCULAR HEMOGLOBIN 26.9 pg (29.0-33.0); MEAN CORPUSCULAR HGB CONC 31.9 g/dl (32.0-37.0); MEAN CORPUSCULAR VOLUME 84.1 fl (82.0-101.0); MEAN PLATELET VOLUME 8.7 fl (7.4-10.4); MONOCYTE # 0.5 10^3/ul (0.3-0.9); MONOCYTES % 9.7 % (0.0-11.0); NEUTROPHIL # 3.9 10^3/ul (1.6-7.5); NEUTROPHILS % 72.1 % (39.0-77.0); PLATELET COUNT 177 10^3/UL (140-415); RED BLOOD COUNT 3.72 10^6/ul (4.20-5.40); RED CELL DISTRIBUTION WIDTH 15.2 % (11.5-14.5)
[2017-12-03 16:06] LABS: ANION GAP 13 (8-16); BLOOD UREA NITROGEN 25 mg/dl (7-20); CALCIUM 9.9 mg/dl (8.4-10.2); CARBON DIOXIDE 27 mmol/L (21-31); CHLORIDE 96 mmol/L (97-110); CREATININE 3.15 mg/dl (0.44-1.00); GLUCOSE 111 mg/dl (70-220); PHOSPHORUS 3.5 mg/dl (2.5-4.9); POTASSIUM 4.4 mmol/L (3.5-5.1); SODIUM 132 mmol/L (135-144)
== END 2017-12-03 16:31 | disposition home or self-care (01) | DRG 380 ==
LOC: TEL 11-28 00:05 → E/R 21:15
PROC: 0DB68ZX Excision of Stomach, Via Natural or Artificial Opening Endoscopic, Diagnostic (ICD-10-PCS; principal; 2017-12-02 12:20)
PROC: 0DBN8ZZ Excision of Sigmoid Colon, Via Natural or Artificial Opening Endoscopic (ICD-10-PCS; 2017-12-02 12:20)
PROC: 30233N1 Transfusion of Nonautologous Red Blood Cells into Peripheral Vein, Percutaneous Approach (ICD-10-PCS; 2017-12-02 12:20)
PROC: 5A1D70Z Performance of Urinary Filtration, Intermittent, Less than 6 Hours Per Day (ICD-10-PCS; 2017-12-02 12:20)
DX: K22.11 Ulcer of esophagus with bleeding (principal); N18.6 End stage renal disease; D62 Acute posthemorrhagic anemia; C90.00 Multiple myeloma not having achieved remission; I13.2 Hypertensive heart and chronic kidney disease with heart failure and with stage 5 chronic kidney disease, or end stage renal disease; N39.0 Urinary tract infection, site not specified; B37.81 Candidal esophagitis; N17.9 Acute kidney failure, unspecified; K29.01 Acute gastritis with bleeding; K92.1 Melena; K64.4 Residual hemorrhoidal skin tags; I50.9 Heart failure, unspecified; D63.1 Anemia in chronic kidney disease; D50.0 Iron deficiency anemia secondary to blood loss (chronic); D63.8 Anemia in other chronic diseases classified elsewhere; E87.70 Fluid overload, unspecified; E78.5 Hyperlipidemia, unspecified; F32.9 Major depressive disorder, single episode, unspecified; G31.84 Mild cognitive impairment of uncertain or unknown etiology; K44.9 Diaphragmatic hernia without obstruction or gangrene; M81.0 Age-related osteoporosis without current pathological fracture; R63.0 Anorexia; R13.10 Dysphagia, unspecified; R63.4 Abnormal weight loss; R60.1 Generalized edema; R16.1 Splenomegaly, not elsewhere classified; Q27.33 Arteriovenous malformation of digestive system vessel; Z99.2 Dependence on renal dialysis; Z68.23 Body mass index [BMI] 23.0-23.9, adult
CPT/HCPCS: 36415; 36430; 71045; 73510; 80048; 80053; 82270; 82607; 82728; 82746; 83735; 84100; 84484; 85025; 85045; 85610; 85730; 86850; 86870; 86900; 86901; 86902; 86920; 87040; 87086; 87340; 88305; 88312; 90935; 92610; 93005; 93306; 96374; 96375; 97116; 97162; 99285-25

== ENCOUNTER 2018-01-17 01:19 | Inpatient (IN) | payer MEDICARE, OTHER ==
[2018-01-17] MEDS: PIPER-TAZO 3.375 GM IV (PMX) 100 ML IVPB (02:48)
[2018-01-17] MEDS: ONDANSETRON 4 MG INJ IV (02:48)
[2018-01-17] MEDS: SODIUM CHLORIDE 0.9% 1L BAG IV* (02:49)
[2018-01-17 03:32] LABS: ADD MAN DIFF? NO
[2018-01-17 03:53] LABS: INR 1.09; PROTIME 14.3 Sec (11.9-14.9); PT RATIO 1.1
[2018-01-17 03:54] LABS: PARTIAL THROMBOPLASTIN TIME 35.3 Sec (25.0-35.0)
[2018-01-17 04:00] LABS: ANION GAP 11 (8-16); BLOOD UREA NITROGEN 34 mg/dl (7-20); CALCIUM 11.2 mg/dl (8.4-10.2); CARBON DIOXIDE 26 mmol/L (21-31); CHLORIDE 107 mmol/L (97-110); CREATININE 5.16 mg/dl (0.44-1.00); GLUCOSE 72 mg/dl (70-220); POTASSIUM 3.9 mmol/L (3.5-5.1); SODIUM 140 mmol/L (135-144)
[2018-01-17 04:09] LABS: BASOPHIL # 0.1 10^3/ul (0.0-0.1); BASOPHILS % 0.9 % (0.0-2.0); EOSINOPHILS # 0.1 10^3/ul (0.0-0.5); HEMATOCRIT 26.2 % (37.0-47.0); HEMOGLOBIN 7.9 g/dl (12.0-16.0); LYMPHOCYTES # 2.6 10^3/ul (0.8-2.9); LYMPHOCYTES % 17.4 % (15.0-51.0); MEAN CORPUSCULAR HEMOGLOBIN 29.3 pg (29.0-33.0); MEAN CORPUSCULAR HGB CONC 30.2 g/dl (32.0-37.0); MEAN PLATELET VOLUME 9.8 fl (7.4-10.4); MONOCYTE # 1.3 10^3/ul (0.3-0.9); MONOCYTES % 8.6 % (0.0-11.0); NEUTROPHIL # 10.4 10^3/ul (1.6-7.5); NEUTROPHILS % 70.7 % (39.0-77.0); PLATELET COUNT 180 10^3/UL (140-415)
[2018-01-17 04:09] LABS: B-TYPE NATRIURETIC PEPTIDE 16100 PG/ML (0-125); WHITE BLOOD COUNT 14.7 10^3/ul (4.8-10.8)
[2018-01-17 04:12] LABS: TROPONIN-I 0.032 ng/ml (0.000-0.120)
[2018-01-17] MEDS: VANCOMYCIN 1 GM (PMX) 250 ML IVPB (04:16)
[2018-01-17 04:19] LABS: LACTIC ACID 2.4 mmol/L (0.5-2.0)
[2018-01-17 05:02] LABS: URINE PH (Dip) POC 7.5 (5.0-8.5)
[2018-01-17 05:02] LABS: URINE BLOOD (Dip) POC 3+ (NEGATIVE); URINE KETONES (Dip) POC Negative (NEGATIVE); URINE LEUKOCYTE EST (Dip) POC 1+ (NEGATIVE); URINE NITRITE (Dip) POC Negative (NEGATIVE); URINE TOTAL PROTEIN POC 3+ (NEGATIVE)
[2018-01-17 05:21] LABS: ADD UMIC YES; UR AMORPHOUS CRYSTAL MODERATE /HPF (NONE SEEN); UR ASCORBIC ACID NEGATIVE (NEGATIVE); UR BACTERIA FEW /HPF (NONE SEEN); UR BILIRUBIN (Dip) NEGATIVE (NEGATIVE); UR BLOOD (Dip) 1+ mg/dL (NEGATIVE); UR CLARITY TURBID (CLEAR); UR COLOR AMBER (YELLOW); UR GLUCOSE (Dip) NEGATIVE (NEGATIVE); UR KETONES (Dip) NEGATIVE (NEGATIVE); UR LEUKOCYTE ESTERASE (Dip) 2+ Leu/ul (NEGATIVE); UR NITRITE (Dip) NEGATIVE (NEGATIVE); UR NONSQUAMOUS EPITHELIAL CELL <1 /HPF (NONE SEEN); UR RBC 82 /HPF (0-5); UR SPECIFIC GRAVITY (Dip) 1.015 (1.003-1.030); UR SQUAMOUS EPITHELIAL CELL FEW /HPF (FEW); UR TOTAL PROTEIN (Dip) 3+ mg/dl (NEGATIVE); UR UROBILINOGEN (Dip) NEGATIVE (NEGATIVE); UR WBC > 182 /HPF (0-5)
[2018-01-17] MEDS ORDERED: ONDANSETRON 4 MG INJ IV ×2 (06:00→09:00)
[2018-01-17 06:06] LABS: LACTIC ACID 1.7 mmol/L (0.5-2.0)
[2018-01-17] MEDS: ACETAMINOPHEN 325 MG TAB PO (06:15)
[2018-01-17] MEDS: IPRATROPIUM (NEB) 0.5 MG/2.5 ML AMP HHN ×3 (09:00→20:49)
[2018-01-17] MEDS ORDERED: ACETAMINOPHEN 500 MG TAB PO (09:00)
[2018-01-17] MEDS ORDERED: VANCOMYCIN IV PER PHARMACY XX (09:00)
[2018-01-17 09:22] LABS: LACTIC ACID 2.1 mmol/L (0.5-2.0)
[2018-01-17] MEDS ORDERED: METOPROLOL (XL) 100 MG TAB PO (09:30)
[2018-01-17] MEDS ORDERED: LOSARTAN 50 MG TAB PO (09:30)
[2018-01-17] MEDS ORDERED: ONDANSETRON 4 MG TAB PO (09:30)
[2018-01-17] MEDS: PIPER-TAZO 2.25 GM (PMX) 50 ML IVPB ×3 (11:17→21:13)
[2018-01-17] MEDS: SOD CHLORIDE 0.9% 1,000 ML IV (11:17)
[2018-01-17] MEDS: FOLIC ACID 1 MG TAB PO (11:40)
[2018-01-17] MEDS: SUCRALFATE 1 GM TAB PO ×2 (11:40→17:52)
[2018-01-17] MEDS: traMADol 50 MG TAB PO ×2 (11:41→20:40)
[2018-01-17 12:49] LABS: IRON 70 ug/dl (35-150)
[2018-01-17 12:50] LABS: AMYLASE 80 U/L (11-123)
[2018-01-17 12:50] LABS: MAGNESIUM 1.8 mg/dl (1.7-2.5)
[2018-01-17 12:58] LABS: % IRON SATURATION 52 % SAT (22-52); TOTAL IRON BINDING CAPACITY 135 ug/dl (241-421)
[2018-01-17 13:00] LABS: D-DIMER 1675.79 ng/ml (<460)
[2018-01-17] MEDS: ALBUTEROL 0.083% (NEB) 2.5 MG/3 ML AMP HHN ×2 (14:28→20:48)
[2018-01-17] MEDS: CALCITRIOL 0.25 MCG CAP PO (20:39)
[2018-01-17] MEDS ORDERED: AMLODIPINE 5 MG TAB PO (21:00)
[2018-01-18] MEDS: IPRATROPIUM (NEB) 0.5 MG/2.5 ML AMP HHN ×4 (02:00→19:49)
[2018-01-18] MEDS: PIPER-TAZO 2.25 GM (PMX) 50 ML IVPB ×3 (05:54→22:57)
[2018-01-18] MEDS: SOD CHLORIDE 0.9% 1,000 ML IV (05:55)
[2018-01-18] MEDS: PANTOPRAZOLE (EC) 40 MG TAB PO (05:57)
[2018-01-18 07:04] LABS: ABNORMAL IP MESSAGE 1; HEMATOCRIT 23.7 % (37.0-47.0); MEAN CORPUSCULAR HEMOGLOBIN 29.2 pg (29.0-33.0); MEAN CORPUSCULAR HGB CONC 29.1 g/dl (32.0-37.0); MEAN CORPUSCULAR VOLUME 100.4 fl (82.0-101.0); MEAN PLATELET VOLUME 10.1 fl (7.4-10.4); PLATELET COUNT 226 10^3/UL (140-415); RED BLOOD COUNT 2.36 10^6/ul (4.20-5.40); RED CELL DISTRIBUTION WIDTH 20.1 % (11.5-14.5)
[2018-01-18 07:04] LABS: WHITE BLOOD COUNT 10.6 10^3/ul (4.8-10.8)
[2018-01-18 07:37] LABS: POSITIVE DIFF @See below
[2018-01-18 07:39] LABS: HEMOGLOBIN 6.9 g/dl (12.0-16.0)
[2018-01-18 07:40] LABS: ADD MAN DIFF? YES; PATH REVIEW? YES
[2018-01-18] MEDS: ALBUTEROL 0.083% (NEB) 2.5 MG/3 ML AMP HHN ×3 (08:09→19:49)
[2018-01-18] MEDS: FOLIC ACID 1 MG TAB PO (08:43)
[2018-01-18] MEDS: traMADol 50 MG TAB PO ×2 (08:43→22:52)
[2018-01-18] MEDS: SUCRALFATE 1 GM TAB PO ×2 (08:43→17:16)
[2018-01-18] MEDS: CALCITRIOL 0.25 MCG CAP PO ×2 (08:43→22:52)
[2018-01-18 09:08] LABS: ALANINE AMINOTRANSFERASE 23 IU/L (13-69); ALBUMIN 2.1 g/dl (3.3-4.9); ALKALINE PHOSPHATASE 246 IU/L (42-121); ANION GAP 15 (8-16); ASPARTATE AMINO TRANSFERASE 72 IU/L (15-46); BILIRUBIN,INDIRECT 0.2 mg/dl (0-1.1); BILIRUBIN,TOTAL 0.2 mg/dl (0.2-1.3); BLOOD UREA NITROGEN 33 mg/dl (7-20); CALCIUM 9.9 mg/dl (8.4-10.2); CARBON DIOXIDE 21 mmol/L (21-31); CHLORIDE 109 mmol/L (97-110); CREATININE 5.61 mg/dl (0.44-1.00); POTASSIUM 4.5 mmol/L (3.5-5.1); SODIUM 140 mmol/L (135-144); TOTAL PROTEIN 5.1 g/dl (6.1-8.1)
[2018-01-18 09:13] LABS: GLUCOSE 40 mg/dl (70-220)
[2018-01-18] MEDS ORDERED: DEXTROSE 50% 50 ML SYRINGE (09:21)
[2018-01-18] MEDS: DEXTROSE 50% 50 ML SYRINGE IV ×2 (09:49→13:36)
[2018-01-18] MEDS: DEXTROSE 5%-0.9% NACL 1,000 ML IV (09:50)
[2018-01-18 10:09] LABS: ANISOCYTOSIS 1+ (0-0); BAND NEUTROPHILS #M 0.4 10^3/ul (0.0-0.6); BAND NEUTROPHILS % (M) 4 % (0-4); BURR CELLS 3+ (0-0); EOSINOPHILS % (M) 2 % (0-7); LYMPHOCYTES #M 2.3 10^3/ul (0.8-2.9); LYMPHOCYTES % (M) 22 % (15-51); MICROCYTOSIS 1+ (0-0); MONOCYTE #M 0.4 10^3/ul (0.3-0.9); MONOCYTES % (M) 4 % (0-11); PLATELET ESTIMATE DECREASED; POIKILOCYTOSIS 3+ (0-0); POLYCHROMASIA 1+ (0-0); REACTIVE LYMPHOCYTES #M 0.1 10^3/ul (0.0-0.0); REACTIVE LYMPHOCYTES% (M) 1 % (0-0); SEG NEUT #M 7.1 10^3/ul (1.6-7.5); SEGMENTED NEUTROPHILS (M) % 67 % (39-77); SMUDGE%M 5 % (0-0); TEAR DROP CELLS 1+ (0-0)
[2018-01-18 11:12] LABS: ANION GAP 12 (8-16); BLOOD UREA NITROGEN 36 mg/dl (7-20); CALCIUM 10.2 mg/dl (8.4-10.2); CARBON DIOXIDE 22 mmol/L (21-31); CHLORIDE 111 mmol/L (97-110); CREATININE 5.91 mg/dl (0.44-1.00); GLUCOSE 121 mg/dl (70-220); POTASSIUM 4.2 mmol/L (3.5-5.1); SODIUM 141 mmol/L (135-144)
[2018-01-18] MEDS: ACCU-CHEK XX ×3 (13:21→20:10)
[2018-01-18 13:38] LABS: AADO2 Arterial 40.9 mmHg (7.0-24.0); Allen Test ACCEPTAB; Arterial Base Excess -5.7 mmol/L (-3.0-3); Arterial Blood Gas Oxygen Sat 98.6 mmHG (95.0-100.0); Arterial COHb 0.9 % (0.0-3.0); Arterial Fraction of Oxyhgb 97.2 % (93.0-99.0); Arterial HCO3 19.9 mmol/L (22.0-26.0); Arterial MetHb 0.5 % (0.0-1.5); Arterial Total Hemglobin 8.2 g/dl (12.0-18.0); Arterial pCO2 39.1 mmhg (35-45); MODE NASAL CANNULA; Site Right Radial
[2018-01-18] MEDS: ACETAMINOPHEN 325 MG TAB PO ×2 (13:39→17:16)
[2018-01-18 16:30] LABS: HEPATITIS B SURFACE ANTIGEN NEGATIVE (NEGATIVE)
[2018-01-18 17:39] LABS: AHG CROSSMATCH 1 2
[2018-01-18] MEDS: HEPARIN 1000 UNITS/ML 10 ML INJ CATHETER (22:17)
[2018-01-19] MEDS: DEXTROSE 50% 50 ML SYRINGE IV ×3 (00:30→12:23)
[2018-01-19] MEDS: ACCU-CHEK XX ×6 (00:39→21:00)
[2018-01-19] MEDS: IPRATROPIUM (NEB) 0.5 MG/2.5 ML AMP HHN ×4 (02:55→20:22)
[2018-01-19] MEDS: DEXTROSE 5%-0.9% NACL 1,000 ML IV (05:24)
[2018-01-19] MEDS: PANTOPRAZOLE (EC) 40 MG TAB PO (05:24)
[2018-01-19] MEDS: PIPER-TAZO 2.25 GM (PMX) 50 ML IVPB ×3 (05:25→23:33)
[2018-01-19 05:43] LABS: ADD MAN DIFF? NO
[2018-01-19 05:50] LABS: BASOPHIL # 0.1 10^3/ul (0.0-0.1); BASOPHILS % 1.7 % (0.0-2.0); EOSINOPHILS # 0.2 10^3/ul (0.0-0.5); EOSINOPHILS % 2.8 % (0.0-7.0); HEMOGLOBIN 10.2 g/dl (12.0-16.0); LYMPHOCYTES # 1.5 10^3/ul (0.8-2.9); LYMPHOCYTES % 17.5 % (15.0-51.0); MEAN CORPUSCULAR HEMOGLOBIN 29.8 pg (29.0-33.0); MEAN CORPUSCULAR HGB CONC 31.9 g/dl (32.0-37.0); MEAN CORPUSCULAR VOLUME 93.6 fl (82.0-101.0); MEAN PLATELET VOLUME 8.9 fl (7.4-10.4); MONOCYTE # 1.2 10^3/ul (0.3-0.9); MONOCYTES % 14.3 % (0.0-11.0); NEUTROPHILS % 60.5 % (39.0-77.0); PLATELET COUNT 189 10^3/UL (140-415); RED BLOOD COUNT 3.42 10^6/ul (4.20-5.40); RED CELL DISTRIBUTION WIDTH 19.3 % (11.5-14.5)
[2018-01-19 05:50] LABS: WHITE BLOOD COUNT 8.3 10^3/ul (4.8-10.8)
[2018-01-19 06:02] LABS: SODIUM 141 mmol/L (135-144)
[2018-01-19 06:06] LABS: VANCOMYCIN,RANDOM 15.1 ug/ml
[2018-01-19 06:11] LABS: CHLORIDE 107 mmol/L (97-110); POTASSIUM 3.3 mmol/L (3.5-5.1)
[2018-01-19 06:12] LABS: ANION GAP 9 (8-16); BLOOD UREA NITROGEN 17 mg/dl (7-20); CALCIUM 8.9 mg/dl (8.4-10.2); CARBON DIOXIDE 28 mmol/L (21-31); CREATININE 3.39 mg/dl (0.44-1.00); GLUCOSE 73 mg/dl (70-220); PHOSPHORUS 2.1 mg/dl (2.5-4.9)
[2018-01-19] MEDS: LORAZEPAM 2 MG INJ IV ×2 (08:19→22:16)
[2018-01-19] MEDS: SUCRALFATE 1 GM TAB PO ×2 (09:13→17:17)
[2018-01-19] MEDS: CALCITRIOL 0.25 MCG CAP PO ×2 (09:14→23:34)
[2018-01-19] MEDS: FOLIC ACID 1 MG TAB PO (09:14)
[2018-01-19] MEDS: MULTIVIT/CA CARB/B CMPLX/FA TAB PO (09:14)
[2018-01-19] MEDS: traMADol 50 MG TAB PO ×3 (10:00→21:15)
[2018-01-19] MEDS: POTASSIUM PHOSPHATE 15 MM in SOD CHLORIDE 0.9% 250 ML IVPB (10:34)
[2018-01-19] MEDS: ALBUTEROL 0.083% (NEB) 2.5 MG/3 ML AMP HHN ×3 (10:57→20:22)
[2018-01-19] MEDS ORDERED: HEPARIN 1000 UNITS/ML 10 ML INJ CATHETER (16:30)
[2018-01-19] MEDS: HEPARIN 1000 UNITS/ML 10 ML INJ CATHETER (18:00)
[2018-01-19] MEDS: VANCOMYCIN 500MG/NS (PMX) 100 ML IVPB (18:51)
[2018-01-19] MEDS: EPOETIN 10000 UNITS/1 ML INJ (ESRD) SC (18:52)
[2018-01-19] MEDS: NYSTATIN 15 GM OINT TOP (21:16)
[2018-01-19] MEDS ORDERED: GLUCOSE GEL 15 GRAM TUBE PO ×2 (23:45)
[2018-01-19] MEDS ORDERED: DEXTROSE 50% 50 ML SYRINGE IV (23:45)
[2018-01-19] MEDS ORDERED: GLUCOSE GEL 15 GRAM TUBE BUCCAL (23:45)
[2018-01-19] MEDS ORDERED: GLUCAGON 1 MG INJ IM (23:45)
[2018-01-20] MEDS: IPRATROPIUM (NEB) 0.5 MG/2.5 ML AMP HHN ×4 (02:02→19:26)
[2018-01-20] MEDS: ACETAMINOPHEN 325 MG TAB PO (03:10)
[2018-01-20] MEDS ORDERED: PENDING SANTYL ORDER FOR WOUND CARE XX (06:00)
[2018-01-20] MEDS: INSULIN ASPART [NOVOLOG] 3 ML PEN SC ×4 (06:00→17:24)
[2018-01-20] MEDS: PIPER-TAZO 2.25 GM (PMX) 50 ML IVPB ×3 (06:27→22:11)
[2018-01-20] MEDS: PANTOPRAZOLE (EC) 40 MG TAB PO (06:28)
[2018-01-20] MEDS: DEXTROSE 5%-0.45% NACL 1,000 ML IV (06:45)
[2018-01-20 06:47] LABS: ADD MAN DIFF? NO
[2018-01-20 06:49] LABS: WHITE BLOOD COUNT 8.7 10^3/ul (4.8-10.8)
[2018-01-20 06:49] LABS: BASOPHIL # 0.2 10^3/ul (0.0-0.1); BASOPHILS % 2.1 % (0.0-2.0); EOSINOPHILS # 0.2 10^3/ul (0.0-0.5); EOSINOPHILS % 2.4 % (0.0-7.0); HEMATOCRIT 34.4 % (37.0-47.0); HEMOGLOBIN 10.5 g/dl (12.0-16.0); LYMPHOCYTES # 1.8 10^3/ul (0.8-2.9); LYMPHOCYTES % 20.3 % (15.0-51.0); MEAN CORPUSCULAR HEMOGLOBIN 29.3 pg (29.0-33.0); MEAN CORPUSCULAR HGB CONC 30.5 g/dl (32.0-37.0); MEAN CORPUSCULAR VOLUME 96.1 fl (82.0-101.0); MONOCYTE # 1.3 10^3/ul (0.3-0.9); MONOCYTES % 14.7 % (0.0-11.0); NEUTROPHIL # 5.1 10^3/ul (1.6-7.5); NEUTROPHILS % 58.4 % (39.0-77.0); PLATELET COUNT 158 10^3/UL (140-415); RED BLOOD COUNT 3.58 10^6/ul (4.20-5.40)
[2018-01-20 07:13] LABS: ANION GAP 9 (8-16); BLOOD UREA NITROGEN 10 mg/dl (7-20); CALCIUM 8.2 mg/dl (8.4-10.2); CARBON DIOXIDE 28 mmol/L (21-31); CHLORIDE 109 mmol/L (97-110); CREATININE 2.16 mg/dl (0.44-1.00); GLUCOSE 69 mg/dl (70-220); PHOSPHORUS 2.4 mg/dl (2.5-4.9); POTASSIUM 4.1 mmol/L (3.5-5.1); SODIUM 142 mmol/L (135-144)
[2018-01-20] MEDS ORDERED: CALCITRIOL 0.5 MCG CAPSULE PO (09:00)
[2018-01-20] MEDS: FOLIC ACID 1 MG TAB PO (09:18)
[2018-01-20] MEDS: DEXTROSE 5% 1,000 ML IV (09:18)
[2018-01-20] MEDS: SUCRALFATE 1 GM TAB PO ×2 (09:18→17:23)
[2018-01-20] MEDS: CALCITRIOL 0.5 MCG CAPSULE PO ×2 (09:19→21:32)
[2018-01-20] MEDS: traMADol 50 MG TAB PO ×2 (09:19→21:33)
[2018-01-20] MEDS: NYSTATIN 15 GM OINT TOP ×3 (09:20→21:33)
[2018-01-20] MEDS: LIDOCAINE 1% (MPF) 5 ML VIAL (10:19)
[2018-01-20] MEDS: ALBUTEROL 0.083% (NEB) 2.5 MG/3 ML AMP HHN ×3 (13:17→19:26)
[2018-01-20] MEDS ORDERED: IODIXANOL LOCM 100 ML BTL (15:48)
[2018-01-20] MEDS ORDERED: LIDOCAINE 1% (MDV) 20 ML INJ (15:48)
[2018-01-20] MEDS ORDERED: HEPARIN 1000 UNITS/NS (A-LINE) 1,000 ML (15:48)
[2018-01-20] MEDS ORDERED: IOHEXOL 350MG/ML 50 ML BTL (15:48)
[2018-01-20] MEDS: LORAZEPAM 2 MG INJ IV (17:24)
[2018-01-21] MEDS: ACETAMINOPHEN 325 MG TAB PO (00:29)
[2018-01-21] MEDS: LORAZEPAM 2 MG INJ IV ×3 (00:32→18:10)
[2018-01-21] MEDS: IPRATROPIUM (NEB) 0.5 MG/2.5 ML AMP HHN ×4 (01:01→21:10)
[2018-01-21] MEDS: INSULIN ASPART [NOVOLOG] 3 ML PEN SC ×4 (06:00→17:52)
[2018-01-21] MEDS: PANTOPRAZOLE (EC) 40 MG TAB PO (06:26)
[2018-01-21] MEDS: PIPER-TAZO 2.25 GM (PMX) 50 ML IVPB ×3 (06:26→21:47)
[2018-01-21 06:44] LABS: ADD MAN DIFF? NO
[2018-01-21 06:50] LABS: WHITE BLOOD COUNT 9.6 10^3/ul (4.8-10.8)
[2018-01-21 06:50] LABS: BASOPHIL # 0.2 10^3/ul (0.0-0.1); EOSINOPHILS # 0.1 10^3/ul (0.0-0.5); EOSINOPHILS % 1.5 % (0.0-7.0); HEMATOCRIT 32.3 % (37.0-47.0); HEMOGLOBIN 9.9 g/dl (12.0-16.0); LYMPHOCYTES % 20.5 % (15.0-51.0); MEAN CORPUSCULAR HEMOGLOBIN 29.6 pg (29.0-33.0); MEAN CORPUSCULAR HGB CONC 30.7 g/dl (32.0-37.0); MEAN CORPUSCULAR VOLUME 96.7 fl (82.0-101.0); MEAN PLATELET VOLUME 9.3 fl (7.4-10.4); MONOCYTE # 1.2 10^3/ul (0.3-0.9); MONOCYTES % 12.3 % (0.0-11.0); NEUTROPHILS % 62.2 % (39.0-77.0); PLATELET COUNT 174 10^3/UL (140-415); RED BLOOD COUNT 3.34 10^6/ul (4.20-5.40); RED CELL DISTRIBUTION WIDTH 20.1 % (11.5-14.5)
[2018-01-21] MEDS: ALBUTEROL 0.083% (NEB) 2.5 MG/3 ML AMP HHN ×3 (08:00→21:10)
[2018-01-21 08:21] LABS: ANION GAP 11 (8-16); BLOOD UREA NITROGEN 13 mg/dl (7-20); CALCIUM 8.1 mg/dl (8.4-10.2); CARBON DIOXIDE 25 mmol/L (21-31); CHLORIDE 108 mmol/L (97-110); CREATININE 2.98 mg/dl (0.44-1.00); GLUCOSE 69 mg/dl (70-220); PHOSPHORUS 2.1 mg/dl (2.5-4.9); POTASSIUM 3.8 mmol/L (3.5-5.1); SODIUM 140 mmol/L (135-144)
[2018-01-21 08:26] LABS: VANCOMYCIN,RANDOM 16.2 ug/ml
[2018-01-21] MEDS: CALCITRIOL 0.5 MCG CAPSULE PO ×2 (08:41→21:30)
[2018-01-21] MEDS: SUCRALFATE 1 GM TAB PO ×2 (08:41→17:51)
[2018-01-21] MEDS: DEXTROSE 5% 1,000 ML IV (08:41)
[2018-01-21] MEDS: FOLIC ACID 1 MG TAB PO (08:41)
[2018-01-21] MEDS: traMADol 50 MG TAB PO ×2 (08:44→21:31)
[2018-01-21] MEDS: NYSTATIN 15 GM OINT TOP ×3 (08:44→21:41)
[2018-01-21 13:29] LABS: OCCULT BLOOD STOOL NEGATIVE (NEGATIVE)
[2018-01-21] MEDS: VANCOMYCIN 500MG/NS (PMX) 100 ML IVPB (16:24)
[2018-01-21] MEDS: DEXTROSE 50% 50 ML SYRINGE IV (17:52)
[2018-01-22] MEDS: IPRATROPIUM (NEB) 0.5 MG/2.5 ML AMP HHN ×4 (02:05→21:36)
[2018-01-22] MEDS: DEXTROSE 5% 1,000 ML IV ×2 (04:28→20:30)
[2018-01-22] MEDS: INSULIN ASPART [NOVOLOG] 3 ML PEN SC ×4 (06:00→17:32)
[2018-01-22] MEDS: PIPER-TAZO 2.25 GM (PMX) 50 ML IVPB (06:06)
[2018-01-22] MEDS: PANTOPRAZOLE (EC) 40 MG TAB PO (06:10)
[2018-01-22 06:57] LABS: ADD MAN DIFF? NO
[2018-01-22 07:11] LABS: BASOPHIL # 0.3 10^3/ul (0.0-0.1); BASOPHILS % 2.4 % (0.0-2.0); EOSINOPHILS # 0.1 10^3/ul (0.0-0.5); EOSINOPHILS % 0.8 % (0.0-7.0); HEMATOCRIT 33.6 % (37.0-47.0); HEMOGLOBIN 10.3 g/dl (12.0-16.0); LYMPHOCYTES # 2.3 10^3/ul (0.8-2.9); LYMPHOCYTES % 21.8 % (15.0-51.0); MEAN CORPUSCULAR HEMOGLOBIN 29.3 pg (29.0-33.0); MEAN CORPUSCULAR HGB CONC 30.7 g/dl (32.0-37.0); MEAN CORPUSCULAR VOLUME 95.7 fl (82.0-101.0); MEAN PLATELET VOLUME 9.4 fl (7.4-10.4); MONOCYTE # 1.2 10^3/ul (0.3-0.9); MONOCYTES % 11.4 % (0.0-11.0); NEUTROPHIL # 6.6 10^3/ul (1.6-7.5); NEUTROPHILS % 61.6 % (39.0-77.0); PLATELET COUNT 243 10^3/UL (140-415); RED BLOOD COUNT 3.51 10^6/ul (4.20-5.40); RED CELL DISTRIBUTION WIDTH 19.9 % (11.5-14.5)
[2018-01-22 07:11] LABS: WHITE BLOOD COUNT 10.6 10^3/ul (4.8-10.8)
[2018-01-22 07:47] LABS: ANION GAP 12 (8-16); BLOOD UREA NITROGEN 14 mg/dl (7-20); CARBON DIOXIDE 25 mmol/L (21-31); CHLORIDE 106 mmol/L (97-110); CREATININE 3.82 mg/dl (0.44-1.00); GLUCOSE 70 mg/dl (70-220); PHOSPHORUS 2.1 mg/dl (2.5-4.9); SODIUM 139 mmol/L (135-144)
[2018-01-22] MEDS: ALBUTEROL 0.083% (NEB) 2.5 MG/3 ML AMP HHN ×3 (08:09→21:36)
[2018-01-22] MEDS ORDERED: ASPIRIN (EC) 81 MG TAB PO (09:00)
[2018-01-22] MEDS: MEROPENEM 500MG/50 ML (PMX) 50 ML IVPB ×4 (10:00→20:46)
[2018-01-22] MEDS: CLONIDINE 0.1 MG/24 HR PATCH TRANSDERM (10:00)
[2018-01-22] MEDS: FLUCONAZOLE 100 MG/50 ML (PMX) 50 ML IVPB ×3 (10:00→14:09)
[2018-01-22] MEDS: SODIUM PHOSPHATE 20 MEQ in SOD CHLORIDE 0.9% 250 ML IVPB ×2 (10:00→16:27)
[2018-01-22] MEDS: ALBUMIN HUMAN 25% 100 ML IV (10:51)
[2018-01-22] MEDS: ACETAMINOPHEN 325 MG SUPP PR ×2 (11:11→16:46)
[2018-01-22] MEDS: NYSTATIN 15 GM OINT TOP ×3 (11:15→20:47)
[2018-01-22 11:28] LABS: LACTIC ACID 1.8 mmol/L (0.5-2.0)
[2018-01-22] MEDS: HEPARIN 1000 UNITS/ML 10 ML INJ CATHETER (12:47)
[2018-01-22] MEDS: LORAZEPAM 2 MG INJ IV ×2 (14:24→20:47)
[2018-01-22] MEDS ORDERED: HALOPERIDOL 5 MG INJ IV (15:17)
[2018-01-22] MEDS ORDERED: HALOPERIDOL 5 MG INJ IM (15:30)
[2018-01-23] MEDS: DEXTROSE 50% 50 ML SYRINGE IV (00:24)
[2018-01-23] MEDS: IPRATROPIUM (NEB) 0.5 MG/2.5 ML AMP HHN ×4 (01:38→21:18)
[2018-01-23] MEDS: ACETAMINOPHEN 325 MG SUPP PR ×3 (02:53→20:35)
[2018-01-23] MEDS: DEXTROSE 5% 1,000 ML IV (04:12)
[2018-01-23] MEDS: INSULIN ASPART [NOVOLOG] 3 ML PEN SC ×6 (05:20→20:41)
[2018-01-23] MEDS: PANTOPRAZOLE 40 MG INJ IV (05:20)
[2018-01-23] MEDS: ALBUTEROL 0.083% (NEB) 2.5 MG/3 ML AMP HHN ×3 (08:10→21:18)
[2018-01-23] MEDS: MEROPENEM 500MG/50 ML (PMX) 50 ML IVPB ×2 (08:43→20:09)
[2018-01-23] MEDS: NYSTATIN 15 GM OINT TOP ×3 (08:44→20:13)
[2018-01-23] MEDS: FLUCONAZOLE 100 MG/50 ML (PMX) 50 ML IVPB (10:05)
[2018-01-23] MEDS: morphine 2 MG INJ IV (11:43)
[2018-01-23] MEDS: LORAZEPAM 2 MG INJ IV (12:18)
[2018-01-23] MEDS: DEXTROSE 10% 1,000 ML IV (13:09)
[2018-01-23] MEDS: TOBRAMYCIN/DEXAMETH 2.5 ML OPH LEFT EYE ×2 (17:35→23:31)
[2018-01-24] MEDS: INSULIN ASPART [NOVOLOG] 3 ML PEN SC ×3 (01:00→08:55)
[2018-01-24] MEDS: IPRATROPIUM (NEB) 0.5 MG/2.5 ML AMP HHN ×4 (01:30→21:29)
[2018-01-24] MEDS: ACETAMINOPHEN 325 MG SUPP PR ×3 (02:08→20:45)
[2018-01-24] MEDS: SOD CHLORIDE 0.9% 250 ML IV (02:09)
[2018-01-24 02:37] LABS: VANCOMYCIN,RANDOM 14.2 ug/ml
[2018-01-24 02:47] LABS: LACTIC ACID 3.3 mmol/L (0.5-2.0)
[2018-01-24] MEDS: DEXTROSE 10% 1,000 ML IV ×3 (04:10→20:42)
[2018-01-24 04:35] LABS: ADD MAN DIFF? NO
[2018-01-24 04:41] LABS: BASOPHIL # 0.2 10^3/ul (0.0-0.1); BASOPHILS % 1.2 % (0.0-2.0); EOSINOPHILS # 0.1 10^3/ul (0.0-0.5); EOSINOPHILS % 0.6 % (0.0-7.0); HEMATOCRIT 31.5 % (37.0-47.0); HEMOGLOBIN 9.8 g/dl (12.0-16.0); LYMPHOCYTES # 2.2 10^3/ul (0.8-2.9); LYMPHOCYTES % 16.7 % (15.0-51.0); MEAN CORPUSCULAR HEMOGLOBIN 29.5 pg (29.0-33.0); MEAN CORPUSCULAR HGB CONC 31.1 g/dl (32.0-37.0); MEAN CORPUSCULAR VOLUME 94.9 fl (82.0-101.0); MEAN PLATELET VOLUME 9.8 fl (7.4-10.4); MONOCYTE # 1.2 10^3/ul (0.3-0.9); MONOCYTES % 9.5 % (0.0-11.0); NEUTROPHIL # 9.3 10^3/ul (1.6-7.5); NEUTROPHILS % 71.2 % (39.0-77.0); PLATELET COUNT 296 10^3/UL (140-415); RED BLOOD COUNT 3.32 10^6/ul (4.20-5.40); RED CELL DISTRIBUTION WIDTH 19.9 % (11.5-14.5)
[2018-01-24 04:54] LABS: ALANINE AMINOTRANSFERASE 25 IU/L (13-69); ALBUMIN 2.1 g/dl (3.3-4.9); ALKALINE PHOSPHATASE 247 IU/L (42-121); ANION GAP 13 (8-16); ASPARTATE AMINO TRANSFERASE 105 IU/L (15-46); BILIRUBIN,INDIRECT 0.4 mg/dl (0-1.1); BILIRUBIN,TOTAL 0.4 mg/dl (0.2-1.3); BLOOD UREA NITROGEN 10 mg/dl (7-20); CALCIUM 7.4 mg/dl (8.4-10.2); CARBON DIOXIDE 24 mmol/L (21-31); CHLORIDE 102 mmol/L (97-110); GLUCOSE 91 mg/dl (70-220); POTASSIUM 3.4 mmol/L (3.5-5.1); SODIUM 136 mmol/L (135-144); TOTAL PROTEIN 4.7 g/dl (6.1-8.1)
[2018-01-24] MEDS: PANTOPRAZOLE 40 MG INJ IV (05:30)
[2018-01-24] MEDS: ALBUTEROL 0.083% (NEB) 2.5 MG/3 ML AMP HHN ×3 (07:44→20:00)
[2018-01-24] MEDS: MEROPENEM 500MG/50 ML (PMX) 50 ML IVPB ×2 (08:48→20:41)
[2018-01-24] MEDS: TOBRAMYCIN/DEXAMETH 2.5 ML OPH LEFT EYE ×3 (08:48→20:41)
[2018-01-24] MEDS: NYSTATIN 15 GM OINT TOP ×3 (08:49→20:42)
[2018-01-24] MEDS: morphine 2 MG INJ IV (09:36)
[2018-01-24] MEDS: FLUCONAZOLE 100 MG/50 ML (PMX) 50 ML IVPB (10:00)
[2018-01-24] MEDS ORDERED: morphine 2 MG INJ IV (10:30)
[2018-01-24] MEDS: SCOPOLAMINE 1.5 MG PATCH TRANSDERM (11:17)
[2018-01-24] MEDS: ATROPINE 1% 5 ML OPH SL ×3 (11:20→20:55)
[2018-01-24] MEDS: POTASSIUM CHLORIDE 100 ML IVPB (14:14)
[2018-01-24] MEDS: ASPIRIN (EC) 81 MG TAB PO (15:00)
[2018-01-25] MEDS: ATROPINE 1% 5 ML OPH SL ×2 (01:46→05:07)
[2018-01-25] MEDS: DEXTROSE 10% 1,000 ML IV ×2 (01:46→21:47)
[2018-01-25] MEDS: IPRATROPIUM (NEB) 0.5 MG/2.5 ML AMP HHN ×4 (02:29→20:48)
[2018-01-25] MEDS: ACETAMINOPHEN 325 MG SUPP PR ×3 (03:20→21:54)
[2018-01-25] MEDS: PANTOPRAZOLE 40 MG INJ IV (05:07)
[2018-01-25 06:54] LABS: ADD MAN DIFF? NO
[2018-01-25 07:03] LABS: WHITE BLOOD COUNT 16.4 10^3/ul (4.8-10.8)
[2018-01-25 07:03] LABS: ABNORMAL IP MESSAGE 1; BASOPHIL # 0.2 10^3/ul (0.0-0.1); BASOPHILS % 1.2 % (0.0-2.0); EOSINOPHILS # 0.1 10^3/ul (0.0-0.5); EOSINOPHILS % 0.4 % (0.0-7.0); HEMATOCRIT 31.9 % (37.0-47.0); HEMOGLOBIN 9.7 g/dl (12.0-16.0); LYMPHOCYTES # 2.8 10^3/ul (0.8-2.9); LYMPHOCYTES % 16.9 % (15.0-51.0); MEAN CORPUSCULAR HEMOGLOBIN 28.9 pg (29.0-33.0); MEAN CORPUSCULAR HGB CONC 30.4 g/dl (32.0-37.0); MEAN CORPUSCULAR VOLUME 94.9 fl (82.0-101.0); MEAN PLATELET VOLUME 9.8 fl (7.4-10.4); MONOCYTE # 1.5 10^3/ul (0.3-0.9); MONOCYTES % 9.3 % (0.0-11.0); NEUTROPHIL # 11.6 10^3/ul (1.6-7.5); NEUTROPHILS % 70.7 % (39.0-77.0); PLATELET COUNT 338 10^3/UL (140-415); RED BLOOD COUNT 3.36 10^6/ul (4.20-5.40); RED CELL DISTRIBUTION WIDTH 19.6 % (11.5-14.5)
[2018-01-25 07:07] LABS: POSITIVE DIFF @See below
[2018-01-25 07:26] LABS: ALANINE AMINOTRANSFERASE 15 IU/L (13-69); ALBUMIN 2.2 g/dl (3.3-4.9); ALBUMIN/GLOBULIN RATIO 0.81; ALKALINE PHOSPHATASE 239 IU/L (42-121); ANION GAP 15 (8-16); ASPARTATE AMINO TRANSFERASE 107 IU/L (15-46); BILIRUBIN,INDIRECT 0.2 mg/dl (0-1.1); BILIRUBIN,TOTAL 0.2 mg/dl (0.2-1.3); BLOOD UREA NITROGEN 15 mg/dl (7-20); CARBON DIOXIDE 23 mmol/L (21-31); CHLORIDE 100 mmol/L (97-110); CREATININE 3.37 mg/dl (0.44-1.00); GLUCOSE 103 mg/dl (70-220); POTASSIUM 4.1 mmol/L (3.5-5.1); SODIUM 134 mmol/L (135-144); TOTAL PROTEIN 4.9 g/dl (6.1-8.1)
[2018-01-25 07:36] LABS: VANCOMYCIN,RANDOM 12.8 ug/ml
[2018-01-25] MEDS: MEROPENEM 500MG/50 ML (PMX) 50 ML IVPB ×2 (08:01→21:52)
[2018-01-25] MEDS: ASPIRIN (EC) 81 MG TAB PO (08:04)
[2018-01-25] MEDS: TOBRAMYCIN/DEXAMETH 2.5 ML OPH LEFT EYE ×3 (08:04→21:52)
[2018-01-25] MEDS: NYSTATIN 15 GM OINT TOP ×3 (08:04→21:52)
[2018-01-25] MEDS: ALBUTEROL 0.083% (NEB) 2.5 MG/3 ML AMP HHN ×3 (09:03→20:00)
[2018-01-25] MEDS: VANCOMYCIN 500MG/NS (PMX) 100 ML IVPB (14:59)
[2018-01-25] MEDS: SOD CHLORIDE 0.9% 500 ML IV (21:48)
[2018-01-26] MEDS: IPRATROPIUM (NEB) 0.5 MG/2.5 ML AMP HHN ×5 (01:00→20:43)
[2018-01-26] MEDS: SOD CHLORIDE 0.9% 500 ML IV (03:09)
[2018-01-26] MEDS: ACETAMINOPHEN 325 MG SUPP PR ×3 (04:12→16:50)
[2018-01-26] MEDS: PANTOPRAZOLE 40 MG INJ IV (05:27)
[2018-01-26] MEDS: ALBUTEROL 0.083% (NEB) 2.5 MG/3 ML AMP HHN ×3 (08:00→20:43)
[2018-01-26] MEDS: TOBRAMYCIN/DEXAMETH 2.5 ML OPH LEFT EYE ×3 (08:20→21:16)
[2018-01-26] MEDS: MEROPENEM 500MG/50 ML (PMX) 50 ML IVPB ×2 (08:21→21:16)
[2018-01-26] MEDS: NYSTATIN 15 GM OINT TOP ×3 (08:23→21:16)
[2018-01-26] MEDS: ASPIRIN (EC) 81 MG TAB PO (08:23)
[2018-01-26] MEDS: DEXTROSE 10% 1,000 ML IV (17:25)
[2018-01-27] MEDS: IPRATROPIUM (NEB) 0.5 MG/2.5 ML AMP HHN ×4 (01:01→20:43)
[2018-01-27] MEDS: PANTOPRAZOLE 40 MG INJ IV (05:46)
[2018-01-27] MEDS: ASPIRIN (EC) 81 MG TAB PO (09:00)
[2018-01-27] MEDS: ALBUTEROL 0.083% (NEB) 2.5 MG/3 ML AMP HHN ×3 (09:11→20:43)
[2018-01-27] MEDS: MEROPENEM 500MG/50 ML (PMX) 50 ML IVPB ×2 (09:26→20:20)
[2018-01-27] MEDS: NYSTATIN 15 GM OINT TOP ×3 (09:27→20:21)
[2018-01-27] MEDS: TOBRAMYCIN/DEXAMETH 2.5 ML OPH LEFT EYE ×3 (09:27→20:21)
[2018-01-27] MEDS: SCOPOLAMINE 1.5 MG PATCH TRANSDERM (11:10)
[2018-01-27] MEDS: DEXTROSE 10% 1,000 ML IV (17:55)
[2018-01-28] MEDS: LORAZEPAM 2 MG INJ IV ×2 (00:59→10:02)
[2018-01-28] MEDS: IPRATROPIUM (NEB) 0.5 MG/2.5 ML AMP HHN ×4 (02:00→20:51)
[2018-01-28] MEDS: PANTOPRAZOLE 40 MG INJ IV (05:20)
[2018-01-28] MEDS: ALBUTEROL 0.083% (NEB) 2.5 MG/3 ML AMP HHN ×2 (08:00→13:17)
[2018-01-28] MEDS: ASPIRIN (EC) 81 MG TAB PO (08:55)
[2018-01-28] MEDS: TOBRAMYCIN/DEXAMETH 2.5 ML OPH LEFT EYE (08:55)
[2018-01-28] MEDS: NYSTATIN 15 GM OINT TOP ×3 (08:56→20:12)
[2018-01-28] MEDS ORDERED: LORAZEPAM 2 MG INJ IV (14:30)
[2018-01-28] MEDS ORDERED: ATROPINE 1% 5 ML OPH SL (14:30)
[2018-01-28] MEDS ORDERED: ONDANSETRON 4 MG INJ IV (14:30)
[2018-01-28] MEDS ORDERED: ACETAMINOPHEN 650 MG SUPP PR (14:30)
[2018-01-28] MEDS ORDERED: ALBUTEROL/IPRATROPIUM (NEB) 3 ML AMP HHN (14:30)
[2018-01-28] MEDS: morphine (DRIP) 100 MG/100 ML 100 ML IV (15:31)
[2018-01-29] MEDS: IPRATROPIUM (NEB) 0.5 MG/2.5 ML AMP HHN ×2 (01:51→08:52)
[2018-01-29] MEDS: DEXTROSE 10% 1,000 ML IV (04:04)
[2018-01-29] MEDS: NYSTATIN 15 GM OINT TOP (08:08)
[2018-01-29] MEDS: morphine (DRIP) 100 MG/100 ML 100 ML IV ×2 (09:20→11:20)
== END 2018-01-29 15:40 | disposition expired | DRG 871 ==
LOC: PP2 01-23 18:55 → E/R 01:19 → TEL 05:46
PROC: B51W1ZZ Fluoroscopy of Dialysis Shunt/Fistula using Low Osmolar Contrast (ICD-10-PCS; principal; 2018-01-20 16:00)
PROC: 0W9G3ZZ Drainage of Peritoneal Cavity, Percutaneous Approach (ICD-10-PCS; 2018-01-20 16:10)
PROC: 5A1D70Z Performance of Urinary Filtration, Intermittent, Less than 6 Hours Per Day (ICD-10-PCS; 2018-01-20 16:10)
PROC: 30233N1 Transfusion of Nonautologous Red Blood Cells into Peripheral Vein, Percutaneous Approach (ICD-10-PCS; 2018-01-20 16:10)
DX: A41.9 Sepsis, unspecified organism (principal); L89.313 Pressure ulcer of right buttock, stage 3; N18.6 End stage renal disease; J18.9 Pneumonia, unspecified organism; J96.00 Acute respiratory failure, unspecified whether with hypoxia or hypercapnia; G93.49 Other encephalopathy; N39.0 Urinary tract infection, site not specified; I13.2 Hypertensive heart and chronic kidney disease with heart failure and with stage 5 chronic kidney disease, or end stage renal disease; C90.00 Multiple myeloma not having achieved remission; K92.1 Melena; L03.116 Cellulitis of left lower limb; R18.8 Other ascites; E46 Unspecified protein-calorie malnutrition; R65.20 Severe sepsis without septic shock; D63.1 Anemia in chronic kidney disease; E11.22 Type 2 diabetes mellitus with diabetic chronic kidney disease; E87.6 Hypokalemia; F03.90 Unspecified dementia, unspecified severity, without behavioral disturbance, psychotic disturbance, mood disturbance, and anxiety; H10.9 Unspecified conjunctivitis; I50.9 Heart failure, unspecified; I27.20 Pulmonary hypertension, unspecified; I34.0 Nonrheumatic mitral (valve) insufficiency; I07.1 Rheumatic tricuspid insufficiency; K80.80 Other cholelithiasis without obstruction; M84.421G Pathological fracture, right humerus, subsequent encounter for fracture with delayed healing; M19.90 Unspecified osteoarthritis, unspecified site; R13.10 Dysphagia, unspecified; R53.81 Other malaise; Z51.5 Encounter for palliative care; Z68.26 Body mass index [BMI] 26.0-26.9, adult; Z99.2 Dependence on renal dialysis; Z66 Do not resuscitate
CPT/HCPCS: 36430; 36600; 36901; 71045; 73060-RT; 74018; 76705; 80048; 80053; 80202; 81001; 81003; 82150; 82270; 82803; 82962; 83540; 83605; 83735; 83880; 84100; 84443; 84484; 85025; 85378; 85610; 85730; 86644; 86850; 86870; 86900; 86901; 86920; 87040; 87045; 87081; 87086; 87340; 90935; 92526; 92610; 93005; 94640; 94664; 96374; 96375; 99291-25